=== PATIENT | female | born 1955 | race Caucasian/White ===

== ENCOUNTER 2020-03-18 16:50 | Outpatient (CLI) | payer MEDICARE, SELFPAY ==
--- NOTE | ~2020-03-18 | XR_ITS ---
EXAMINATION: XR chest 2V EXAM DATE: 03/18/2020 17:09 INDICATION: Cough, three-week shortness of breath. TECHNIQUE: Frontal and lateral projections of the chest obtained and reviewed. Comparison is made to prior examination from 07/02/2018. FINDINGS: The lungs are clear. There are no pleural effusions. The cardiomediastinal silhouette is within normal limits. There is no pneumothorax suspected. The bones and soft tissues are unremarkab le. There is no significant interval change. IMPRESSION: No acute cardiopulmonary findings. Reviewed, dictated and finalized at location A. [facility]
== END 2020-03-18 16:51 | disposition home or self-care (01) ==
PROVIDERS: PCP Family Medicine; Visit Provider Family Medicine
DX: R05 Cough (principal); R06.02 Shortness of breath
CPT/HCPCS: 71046

== ENCOUNTER 2020-07-12 08:03 | Inpatient (IN) | payer MEDICARE, SELFPAY ==
[2020-07-12] VITALS (24 sets, daily range): BP systolic 92–123; BP diastolic 42–60; PULSE 82–101; RESP 14–27; TEMP 35.9–36.7; O2SAT 97–100; BMI 34.7
[2020-07-12 08:53] LABS: Glucose Point of Care 199 (65-105)
[2020-07-12 09:09] LABS: Basophils Absolute Auto 0.1 K/mm3 (0.0-0.1); Basophils Percent Auto 0.6 % (0.2-1.2); Eosinophils Absolute Auto 0.5 K/mm3 (0-0.3); Eosinophils Percent Auto 4.3 % (0-4.4); Hematocrit 24.1 % (37.0-47.0); Hemoglobin 7.1 g/dL (12.0-15.0); Immature Granulocyte Absolute 0.05 K/mm3 (0.00-0.031); Immature Granulocyte Percent A 0.4 % (0-0.5); Lymphocytes Percent Auto 24.8 % (18.3-44.2); Mean Corpuscular HGB Conc 29.5 g/dl (32-36); Mean Corpuscular Hemoglobin 27.4 pg (26-34); Mean Corpuscular Volume 93.1 fl (80-100); Monocytes Absolute Auto 0.7 K/mm3 (0.1-0.6); Monocytes Percent Auto 6.2 % (2.6-8.5); Neutrophils Absolute Auto 7.2 K/mm3 (1.3-6.7); Neutrophils Percent Auto 63.7 % (45.5-73.1); Platelet Count Result 247 k/mm3 (150-375); Red Blood Count 2.59 M/mm3 (4.2-5.4); Red Cell Distribution Width 15.7 % (11.5-14.5); White Blood Count 11.3 K/mm3 (4.5-10.0)
[2020-07-12 09:19] LABS: Platelet Estimate Adequate (Adequate)
--- NOTE | 2020-07-12 09:19 | ED.WEAKNESS ---
HPI - Weakness General Chief complaint: Weakness Stated complaint: weakness Time Seen by Provider: 07/12/20 08:34 Source: patient Mode of arrival: ambulatory Limitations: clinical condition History of Present Illness HPI Narrative: 64-year-old female History of hypertension and diabetes Presents complaining of generalized weakness for a week Does not have any other more explicit or focused complaints than that just that she was continuing to feel worse today She either saw or discussed with Dr. Henderson previously and says he thought she might have anemia and an ulcer She does not have abdominal pain and has not had melena but is chronically maintained on omeprazole Does not report any orthostatic dizziness Related Data Allergies Allergy/AdvReac Type Severity Reaction Status Date / Time morphine Allergy Unknown unknown Verified 07/12/20 08:11 Review of Systems Review of Systems: All systems reviewed & are unremarkable except as noted in HPI and below Constitutional: Constitutional: Reports no additional constitutional complaints, Denies chills, Reports fatigue, Denies fever(s), Denies headache(s) and Reports weakness Eyes: Eyes: Reports no additional eye complaints and Denies change in vision ENT: Denies headache(s) and Denies sore throat Cardiovascular: Cardiovascular: Denies chest pain and Denies dyspnea Respiratory: Respiratory: Denies cough and Denies dyspnea Gastrointestinal: Gastrointestinal: Denies abdominal pain, Denies diarrhea and Denies vomiting Genitourinary: Genitourinary: Denies urinary frequency, Denies nocturia and Reports dysuria Musculoskeletal: Musculoskeletal: Denies deformity, Denies arthralgias, Denies joint swelling and Denies numbness Integumentary/Breasts: Skin/Breast: Denies rash and Denies wounds Neurologic: Denies headache(s), Denies focal weakness, Denies numbness and Reports weakness Psychiatric: Psychiatric: Reports no additional psychiatric complaints Endocrine: Endocrine: Reports no additional endocrine complaints Hematologic/Lymphatic: Hematologic/Lymphatic: Reports no additional hematologic/lymphatic complaints Allergic/Immunologic: Allergic/Immunologic: Reports no additional allergic/immunologic complaints [facility] Past Medical History Medical History Obesity (BMI 30-39.9) Family History Family History Father Diabetes mellitus Family history of cardiovascular disease Hypertension Family history of elevated blood lipids Mother Family history of hypercholesterolemia Hypertension Family history of development disorder Family history of seizure disorder Other Family history of Alzheimer's disease Family history of malignant neoplasm of brain Social History Social History Alcohol intake: never Gender identity (if verbalized by the patient): Female Exam Const: General: cooperative, no acute distress and alert Orientation/consciousness: patient oriented x3 (alert) HENMT: Head: normal to inspection, normocephalic and atraumatic Ears: external ears normal General nose exam: no epistaxis Eyes: Conjunctivae: conjunctivae normal EOM: EOMs intact bilaterally Neck: Neck: normal visual inspection, supple and no JVD Resp: Effort & Inspection: normal respiratory effort and not labored Auscultation: clear to auscultation bilaterally and other (BS =) Cardio: Rate: regular rate Rhythm: regular rhythm Heart sounds: Murmur heart sound present (3/6 systolic) GI: GI Palp: Yes Soft to palpation, No Tenderness to palpation present (GI), No Guarding due to palpation present (GI) and No Rebound tenderness present Rectal Exam: heme positive stool : General: Yes no CVA tenderness Skin: General skin exam: normal color and no rashes or lesions noted Neuro: General: patient oriented x3 (alert)
[2020-07-12 09:20] LABS: Anisocytosis 1+ (NORMAL); Hypochromasia 1+ (NORMAL)
[2020-07-12 09:24] LABS: Alanine Aminotransferase 22 U/L (4-35); Alkaline Phosphatase 71 U/L (38-126); Anion Gap 11 mmol/L (8-16); Aspartate Amino Transferase 24 U/L (14-36); Bilirubin,Total 1.1 mg/dL (0.2-1.3); Blood Urea Nitrogen 32 mg/dL (7-17); Calcium 8.9 mg/dL (8.4-10.2); Carbon Dioxide 21 mmol/L (22-30); Chloride 105 mmol/L (98-107); Estimated CRCL calculation 35 ml/min; Estimated Glomerular Filt Rate 38; Glucose 187 mg/dL (65-105); Potassium 4.1 mmol/L (3.4-5.0); Sodium 137 mmol/L (137-145)
[2020-07-12 09:42] LABS: Prothrombin Time 13.9 Seconds (11.1-14.7)
[2020-07-12 09:43] LABS: Partial Thromboplastin Time 27.9 SECONDS (22.3-36.8)
[2020-07-12] MEDS: LACTATED RINGERS 1,000 ML 999 ML IV CONT (09:49)
[2020-07-12 11:11] LABS: Free T4 Free Thyroxine 0.93 ng/mL (0.78-2.19)
[2020-07-12] MEDS: PANTOPRAZOLE SODIUM IV 40 MG VIAL IV PUSH ×2 (11:16→16:54)
--- NOTE | 2020-07-12 11:36 | PC.NURSE ---
Call to housekeeper child care for bed assignment.
--- NOTE | 2020-07-12 12:15 | PM.IMHP ---
H&P: HPI History of Present Illness Date/Time: 07/12/20 12:15 Chief Complaint: Black stool and fatigue Narrative: 64-year-old female was in her usual state of health until about 1 week ago. She began to feel tired lightheaded and short of breath. She experienced heart palpitations with walking across the room. On 07/10 in the evening she had 1 episode of nausea and vomiting without hematemesis or coffee-grounds. She saw her primary physician on 07/10 and omeprazole and sucralfate were begun. She took 1 dose the following day. On 07/11 cc her stools or black. They were black again today. She was lightheaded and dizzy with standing. No syncope or presyncope. Because of her continued symptoms, black stools, and extreme exhaustion she presented to the emergency department. Because of right shoulder pain and a frozen shoulder she was self medicating with Aleve 220 mg at bedtime for the last few weeks. Otherwise she does not take aspirin or NSAIDs chronically. She denied prior history of peptic ulcer disease or gastrointestinal bleeding. Review of Systems Review of Systems: All systems reviewed & are unremarkable except as noted in HPI and below PMFSH Past Medical History Medical History (Updated 07/12/20 @ 12:27 by Uri Merida MD) Benign neoplasm of unspecified adrenal gland Diabetes mellitus type 2, uncontrolled Essential (primary) hypertension Fatty (change of) liver, not elsewhere classified Mild intermittent asthma, uncomplicated Mixed hyperlipidemia Obesity (BMI 30-39.9) Type 2 diabetes mellitus with diabetic nephropathy Surgical History Surgical History (Updated 07/12/20 @ 12:33 by Uri Merida MD) History of subtotal thyroidectomy benign nodules Hx of cholecystectomy Hx of hysterectomy Family History Family History Father Diabetes mellitus Family history of cardiovascular disease Hypertension Family history of elevated blood lipids Mother Family history of hypercholesterolemia Hypertension Family history of development disorder Family history of seizure disorder Other Family history of Alzheimer's disease Family history of malignant neoplasm of brain Social History Social History (Updated 07/12/20 @ 12:34 by Uri Merida MD) Social History: 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 Nonsmoker. Nondrinker. No recreational drug use. No medical cannabis use. Smoking status: Never smoker Alcohol intake: never Substance use: never Gender identity (if verbalized by the patient): Female Meds Home Medications and Allergies Home Medications Medication Instructions Recorded Confirmed Type insulin degludec 100 unit/mL (3 10 unit SUB-Q DAILY #15 ml 06/21/19 07/10/20 Rx mL) subcutaneous pen pen needle, diabetic 32 gauge x #100 each 06/21/19 07/10/20 Rx 1/5 lancets 33 gauge #100 ea 03/31/20 07/10/20 Rx blood-glucose meter #1 ea 04/01/20 07/10/20 Rx blood sugar diagnostic See Rx Instructions .ROUTE 04/24/20 07/10/20 Rx .COMPLEX #100 ea lovastatin 10 mg tablet 10 mg PO DAILY #90 tablet 05/04/20 07/10/20 Rx sitagliptin 50 mg-metformin 1,000 1 tablet PO BID #180 tablet 05/04/20 07/10/20 Rx mg tablet lisinopril 10 mg tablet See Rx Instructions .ROUTE 06/11/20 07/10/20 Rx .COMPLEX #90 tablet glimepiride 2 mg tablet 2 mg PO QAM #180 tablet 06/25/20 07/10/20 Rx semaglutide 1 mg/dose (2 mg/1.5 1 mg SUBCUT WEEKLY #3 ml 07/06/20 07/10/20 Rx mL) subcutaneous pen injector ferrous fumarate-iron 1 cap PO BID #180 cap 07/10/20 07/10/20 Rx polysaccharide cplx 162 mg-115.2 mg (106 mg) cap omeprazole 40 mg capsule,delayed 40 mg PO DAILY #90 cap 07/10/20 07/10/20 Rx release sucralfate 1 gram tablet 1 g PO Q4H PRN #90 tablet 07/10/20 07/10/20 Rx Allergies Allergy/AdvReac Type Severity Reaction Status Date / Time morphine Allergy Unknown unknown Verified 07/12/20 08:11 Vital Signs Vital Sign
--- NOTE | 2020-07-12 12:43 | PC.NURSE ---
Attempt to call report, floor unable to take at present. Will call back.
--- NOTE | 2020-07-12 13:10 | ADMGEN ---
This patient, Mary Uribe, was admitted to Medical Room 246-01. Patient/family oriented to hospital policies and general routines including ID bracelet, bed and alarms, visiting hours, pain management, procedures, bathroom and other care routines, personal items, smoking policy, room service/diet, and visiting hours. Information on how to activate the Rapid Response Team has been discussed. Patient/Family are encouraged to report perceived risks to care and to ask questions if they do not understand what they are told or what they should do.
[2020-07-12] MEDS: SODIUM CHLORIDE 0.9% IV 250 ML 30 ML IV CONT (13:36)
--- NOTE | 2020-07-12 13:58 | PC.NURSE ---
patient could not tolerate standing long enough to get accurate blood pressure.
[2020-07-12 14:22] LABS: Glucose Point of Care 159 (65-105)
[2020-07-12 17:06] LABS: Glucose Point of Care 99 (65-105)
[2020-07-12] MEDS: LACTATED RINGERS 1,000 ML 125 ML IV CONT (20:41)
[2020-07-12 23:19] LABS: Hematocrit 27.8 % (37.0-47.0); Hemoglobin 8.7 g/dL (12.0-15.0)
[2020-07-12 23:56] LABS: Glucose Point of Care 88 (65-105)
[2020-07-13] VITALS (10 sets, daily range): BP systolic 115–147; BP diastolic 48–70; PULSE 79–95; RESP 14–22; TEMP 35.9–36.7; O2SAT 97–100
[2020-07-13] MEDS: ACETAMINOPHEN 325 MG TABLET 650 MG PO (04:26)
[2020-07-13] MEDS: LACTATED RINGERS 1,000 ML 125 ML IV CONT ×2 (04:29→16:37)
[2020-07-13 05:45] LABS: Hematocrit 22.9 % (37.0-47.0); Hemoglobin 7.2 g/dL (12.0-15.0); Mean Corpuscular HGB Conc 31.4 g/dl (32-36); Mean Corpuscular Hemoglobin 27.7 pg (26-34); Mean Corpuscular Volume 88.1 fl (80-100); Platelet Count Result 160 k/mm3 (150-375); Red Cell Distribution Width 15.8 % (11.5-14.5); White Blood Count 8.1 K/mm3 (4.5-10.0)
[2020-07-13 05:56] LABS: Anion Gap 3 mmol/L (8-16); Blood Urea Nitrogen 25 mg/dL (7-17); Calcium 8.3 mg/dL (8.4-10.2); Carbon Dioxide 26 mmol/L (22-30); Chloride 107 mmol/L (98-107); Estimated CRCL calculation 35 ml/min; Estimated Glomerular Filt Rate 38; Glucose 102 mg/dL (65-105); Potassium 3.9 mmol/L (3.4-5.0); Sodium 136 mmol/L (137-145)
[2020-07-13 06:09] LABS: Hemoglobin A1C 6.3 % (<5.7)
[2020-07-13 08:19] LABS: Glucose Point of Care 101 (65-105)
[2020-07-13] MEDS: PANTOPRAZOLE SODIUM IV 40 MG VIAL IV PUSH ×2 (08:29→16:30)
--- NOTE | 2020-07-13 11:08 | WPDGICN ---
Assessment and Plan Assessment and plan (1) Melena: Code(s): K92.1 - Melena Status: Acute Assessment and Plan: lately has been using nsaid's egd today to assess if ulcers, esophagitis, etc more recommendation after egd (2) Acute upper GI bleed: Code(s): K92.2 - Gastrointestinal hemorrhage, unspecified Status: Acute Assessment and Plan: egd sancho iv protonix discontinue nsaid's (3) Nausea and vomiting in adult: Code(s): R11.2 - Nausea with vomiting, unspecified Status: Acute Assessment and Plan: on medical treatment (4) Type 2 diabetes mellitus with diabetic nephropathy: Qualifiers: Diabetes mellitus equipment operator intermodal yard insulin use: without equipment operator intermodal yard use Qualified Code(s): E11.21 - Type 2 diabetes mellitus with diabetic nephropathy Code(s): E11.21 - Type 2 diabetes mellitus with diabetic nephropathy Status: Acute Assessment and Plan: on meds (5) Essential (primary) hypertension: Code(s): I10 - Essential (primary) hypertension Status: Acute (6) Anemia due to acute blood loss: Code(s): D62 - Acute posthemorrhagic anemia Status: Acute Assessment and Plan: monitor hb and transfuse if less than 7 GI Consult Note Consult date/time: 07/13/20 11:08 Reason for consult: melena HPI: Mary Uribe is a 64 year old female with history of DM, HTN and right shoulder pain for which she has been taking aleve daily for last few weeks. She started feeling lightheaded and short of breath, few days ago had nausea and vomiting x1 without hematemesis, PCP prescribed omeprazole and sucralfate, next day then she noted dark tarry stools (denies previous GIB and believes that had EGD but years ago). Hb 7, BUN 32, creatinine. 1.4. She never had colonoscopy but negative cologuard last year. Review of Systems Constitutional: Constitutional: Denies headache(s), Reports lethargy and Reports weakness Eyes: Eyes: Denies blurry vision ENT: Reports Normal hearing present, Denies headache(s) and Denies neck pain Cardiovascular: Cardiovascular: Denies chest pain and Reports rapid heart rate Respiratory: Respiratory: Reports dyspnea on exertion Gastrointestinal: Gastrointestinal: Reports no additional gastrointestinal complaints Genitourinary: Genitourinary: Denies dysuria Musculoskeletal: Musculoskeletal: Denies neck pain Integumentary/Breasts: Skin/Breast: Denies dry skin Neurologic: Reports Normal hearing present, Denies headache(s) and Denies weakness Psychiatric: Psychiatric: Denies anxiety Endocrine: Endocrine: Denies change in body appearance Hematologic/Lymphatic: Hematologic/Lymphatic: Denies easy bleeding Allergic/Immunologic: Allergic/Immunologic: Denies urticaria PMFSH Past Medical History Medical History (Updated 07/13/20 @ 12:11 by Rafael Arias MD) Benign neoplasm of unspecified adrenal gland Diabetes mellitus type 2, uncontrolled Essential (primary) hypertension Fatty (change of) liver, not elsewhere classified Melena Mild intermittent asthma, uncomplicated Mixed hyperlipidemia Nausea and vomiting in adult Obesity (BMI 30-39.9) Type 2 diabetes mellitus with diabetic nephropathy Surgical History Surgical History (Updated 07/12/20 @ 12:33 by Uri Merida MD) History of subtotal thyroidectomy benign nodules Hx of cholecystectomy Hx of hysterectomy Family History Family History (Updated 07/12/20 @ 14:14 by Harmony Moreno RN) Father Family history of cardiovascular disease Family history of elevated blood lipids Diabetes mellitus Hypertension Family history of Alzheimer's disease Mother Family history of seizure disorder Family history of development disorder Family history of hypercholesterolemia Hypertension Family history of Alzheimer's disease Aortic aneurysm, thoracic Family history of malignant neoplasm of brain Social History Social History (U
[2020-07-13 11:48] LABS: Glucose Point of Care 107 (65-105)
[2020-07-13 12:07] LABS: Hematocrit 23.2 % (37.0-47.0); Hemoglobin 7.2 g/dL (12.0-15.0)
--- NOTE | 2020-07-13 12:10 | PC.NURSE ---
To GI lab per salty.
[2020-07-13 12:19] LABS: Glucose Point of Care 102 (65-105)
[2020-07-13] MEDS: LACTATED RINGERS 1,000 ML 150 ML IV CONT (12:23)
--- NOTE | 2020-07-13 12:27 | WPDANESEPPF ---
Anes - Initial Pre Proc Eval Procedure: Operation Date: 07/13/20 12:30 Proposed Procedures p Esophagogastroduodenoscopy - Arthur Gonzalez MD Date/Time: 07/13/20 12:27 Surgeon: GUILLERMO Zhang Pre Op Diagnosis: ugib Patient Data Age: 64 Gender: F Height: 5 ft 1 in Weight: 83.5 kg Last Vital Signs Temp 96.6 F L 07/13/20 12:00 Pulse 92 07/13/20 12:00 Resp 22 H 07/13/20 12:00 BP 147/66 H 07/13/20 12:00 Pulse Ox 100 07/13/20 12:00 Allergies Allergy/AdvReac Type Severity Reaction Status Date / Time morphine Allergy Unknown Flushing Verified 07/12/20 13:46 Home Medications Medication Instructions Recorded Confirmed Type insulin degludec 100 unit/mL (3 10 unit SUB-Q DAILY #15 ml 06/21/19 07/12/20 Rx mL) subcutaneous pen pen needle, diabetic 32 gauge x #100 each 06/21/19 07/10/20 Rx 1/5 lancets 33 gauge #100 ea 03/31/20 07/10/20 Rx blood-glucose meter #1 ea 04/01/20 07/10/20 Rx blood sugar diagnostic See Rx Instructions .ROUTE 04/24/20 07/10/20 Rx .COMPLEX #100 ea lovastatin 10 mg tablet 10 mg PO DAILY #90 tablet 05/04/20 07/12/20 Rx sitagliptin 50 mg-metformin 1,000 1 tablet PO BID #180 tablet 05/04/20 07/12/20 Rx mg tablet glimepiride 2 mg tablet 2 mg PO QAM #180 tablet 06/25/20 07/12/20 Rx semaglutide 1 mg/dose (2 mg/1.5 1 mg SUBCUT WEEKLY #3 ml 07/06/20 07/12/20 Rx mL) subcutaneous pen injector ferrous fumarate-iron 1 cap PO BID #180 cap 07/10/20 07/12/20 Rx polysaccharide cplx 162 mg-115.2 mg (106 mg) cap omeprazole 40 mg capsule,delayed 40 mg PO DAILY #90 cap 07/10/20 07/12/20 Rx release sucralfate 1 gram tablet 1 g PO Q4H PRN #90 tablet 07/10/20 07/12/20 Rx lisinopril 10 mg PO DAILY 07/12/20 07/12/20 History meclizine 25 - 50 mg PO DAILY PRN 07/12/20 07/12/20 History Laboratory Tests 07/12/20 07/12/20 07/12/20 09:01 13:44 17:00 WBC RBC Hgb Hct MCV MCH MCHC RDW Plt Count MPV Sodium Potassium Chloride Carbon Dioxide Anion Gap BUN Creatinine Estim Creat Clear Calc Estimated GFR Glucose POC Capillary Glucose 159 mg/dl H mg/dl 99 mg/dl mg/dl (65-105) (65-105) Hemoglobin A1c Calcium Blood Type O Positive Antibody Screen Negative Crossmatch See Detail 07/12/20 07/12/20 07/13/20 23:10 23:43 05:20 WBC RBC Hgb 8.7 g/dL L g/dL (12.0-15.0) Hct 27.8 % L % (37.0-47.0) MCV MCH MCHC RDW Plt Count MPV Sodium Potassium Chloride Carbon Dioxide Anion Gap BUN Creatinine Estim Creat Clear Calc Estimated GFR Glucose POC Capillary Glucose 88 mg/dl mg/dl (65-105) Hemoglobin A1c 6.3 % H % (<5.7) Calcium Blood Type Antibody Screen Crossmatch 07/13/20 07/13/20 07/13/20 05:20 05:20 05:49 WBC 8.1 K/mm3 K/mm3 (4.5-10.0) RBC 2.60 M/mm3 L M/mm3 (4.2-5.4) Hgb 7.2 g/dL L g/dL (12.0-15.0) Hct 22.9 % L % (37.0-47.0) MCV 88.1 fl D fl (80-100) MCH 27.7 pg pg (26-34) MCHC 31.4 g/dl L g/dl (32-36) RDW 15.8 % H % (11.5-14.5) Plt Count 160 k/mm3 k/mm3 (150-375) MPV 11.0 fl H fl (7.4-10.4) Sodium 136 mmol/L L mmol/L (137-145) Potassium 3.9 mmol/L mmol/L (3.4-5.0) Chloride 107 mmol/L mmol/L (98-107) Carbon Dioxide 26 mmol/L mmol/L (22-30) Anion Gap 3 mmol/L L mmol/L
--- NOTE | 2020-07-13 12:34 | PM.IMPN ---
Progress Note: A&P Assessment and Plan (1) Anemia due to acute blood loss: Code(s): D62 - Acute posthemorrhagic anemia Status: Acute Assessment and Plan: Suspect may be related to gastritis or peptic ulcer disease; suspect secondary to naproxen use (taking for arthritis pain). Monitor hemoglobin hematocrit and transfuse to maintain hemoglobin above 7. Received 2 units packed RBC 07/12; Hgb 7.2 this AM and on 7.2 recheck this afternoon. Monitor H&H. (2) GI bleed due to NSAIDs: Code(s): K92.2 - Gastrointestinal hemorrhage, unspecified; T39.395A - Adverse effect of other nonsteroidal anti-inflammatory drugs [NSAID], initial encounter Status: Acute Assessment and Plan: Appreciate GI consultation. Plan is for EGD this afternoon with Dr Chavarria. Continue pantoprazole BID. Continue GI recommendations. (3) Diabetes mellitus type 2, uncontrolled: Qualifiers: Glycemic state: with hyperglycemia Qualified Code(s): E11.65 - Type 2 diabetes mellitus with hyperglycemia Code(s): E11.65 - Type 2 diabetes mellitus with hyperglycemia Status: Acute Assessment and Plan: Q.6 hours sliding-scale insulin while NPO. (4) Type 2 diabetes mellitus with diabetic nephropathy: Qualifiers: Diabetes mellitus lobsterman insulin use: without lobsterman use Qualified Code(s): E11.21 - Type 2 diabetes mellitus with diabetic nephropathy Code(s): E11.21 - Type 2 diabetes mellitus with diabetic nephropathy Status: Acute Assessment and Plan: Avoid nephrotoxic drugs. Continue IV hydration for now and monitor renal function. (5) Essential (primary) hypertension: Code(s): I10 - Essential (primary) hypertension Status: Acute Assessment and Plan: Lisinopril is held, BP reasonable at present. Monitor BP and adjust treatment as needed. Can add hydralazine PRN if pressure rises. (6) Mild intermittent asthma, uncomplicated: Code(s): J45.20 - Mild intermittent asthma, uncomplicated Status: Acute Assessment and Plan: Stable, no evidence of respiratory distress. Monitor. Subjective Date/time seen: 07/13/20 1145 Interval history: Ms. Uribe is a 64y F admitted for anemia and melena. She is feeling okay today, got lightheaded when sitting up in chair earlier but feels better at present. Notes she gets intermittent abdominal pain but none today. No nausea or vomiting. She reports dark tarry stools began around 3 days ago. She has had a dark BM this morning. Denies chest pain. She was feeling short of breath over the weekend and fatigued, denies SOB at present. , Evan, is at the bedside. Review of Systems Review of Systems: All systems reviewed & are unremarkable except as noted in HPI and below Exam Narrative: Exam Narrative: General: Female resting comfortably supine in bed in no acute distress. HEENT: Normocephalic, EOMI, oral mucosa moist. Cardiovascular: Rate and rhythm are regular. Respiratory: Lungs clear to auscultation bilaterally. Respirations even and non-labored. Tolerating room air. Abdomen: Soft, non-tender, non-distended, bowel sounds present. Extremities: Peripheral pulses intact. No edema or pain to palpation. Neuro: Awake and alert. No focal neurological deficits. Speech is clear. Objective Data Vital Signs Vital Signs: Last Vital Signs Temp 96.6 F L 07/13/20 12:00 Pulse 92 07/13/20 12:00 Resp 22 H 07/13/20 12:00 BP 147/66 H 07/13/20 12:00 Pulse Ox 100 07/13/20 12:00 Intake/Output Intake/Output: Intake & Output 07/10/20 07/11/20 07/12/20 07/13/20 23:59 23:59 23:59 23:59 Intake Total 1697 1000 Output Total 600 [place]
[2020-07-13] MEDS: EPINEPHrine INJ 1 MG/10 ML SYRINGE 0.35 MG XX (13:30)
--- NOTE | 2020-07-13 14:07 | PC.NURSE ---
Return from GI lab per salty.
[2020-07-13 17:47] LABS: Glucose Point of Care 108 (65-105)
[2020-07-13 21:28] LABS: Glucose Point of Care 132 (65-105)
[2020-07-14 00:36] VITALS: BP 108/59; PULSE 86; RESP 16; TEMP 36.6; O2SAT 100
[2020-07-14] MEDS: LACTATED RINGERS 1,000 ML 125 ML IV CONT (01:11)
[2020-07-14 05:07] VITALS: BP 109/53; PULSE 80; RESP 16; TEMP 37.1; O2SAT 98
[2020-07-14 05:40] LABS: Hematocrit 22.7 % (37.0-47.0); Hemoglobin 7.1 g/dL (12.0-15.0); Mean Corpuscular HGB Conc 31.3 g/dl (32-36); Mean Corpuscular Hemoglobin 28.1 pg (26-34); Mean Corpuscular Volume 89.7 fl (80-100); Mean Platelet Volume 10.9 fl (7.4-10.4); Platelet Count Result 167 k/mm3 (150-375); Red Blood Count 2.53 M/mm3 (4.2-5.4); Red Cell Distribution Width 15.7 % (11.5-14.5); White Blood Count 6.4 K/mm3 (4.5-10.0)
[2020-07-14 06:03] LABS: Anion Gap 4 mmol/L (8-16); Blood Urea Nitrogen 15 mg/dL (7-17); Calcium 8.3 mg/dL (8.4-10.2); Carbon Dioxide 26 mmol/L (22-30); Chloride 108 mmol/L (98-107); Estimated CRCL calculation 40 ml/min; Estimated Glomerular Filt Rate 45; Glucose 111 mg/dL (65-105); Magnesium 1.7 mg/dL (1.6-2.3); Potassium 3.8 mmol/L (3.4-5.0); Sodium 138 mmol/L (137-145)
--- NOTE | 2020-07-14 07:00 | WPDGIPROGNO ---
Progress Note: A&P Assessment and Plan (1) Melena: Code(s): K92.1 - Melena Status: Acute Assessment and Plan: it appears that bleeding has stopped. No bloody or black stools yet today. Will recheck counts at 2:00 p.m. (2) Duodenal ulcer: Code(s): K26.9 - Duodenal ulcer, unspecified as acute or chronic, without hemorrhage or perforation Status: Acute Assessment and Plan: H pylori is negative. From my perspective she could be discharged on PPI, b.i.d. for the 1st week then once daily for 6 weeks. We discussed the need to avoid NSAIDs or always take them after eating Time Spent With Patient Time with patient: 15 - 25 minutes Subjective Date/time seen: 07/14/20 07:00 She has had nose bloody stools during the night. She did tolerate a full liquid diet last night. Denies nausea or vomiting. She had some epigastric pain for part of the afternoon after procedure but has none now. Hemoglobin remains stable at 7.2. I will recheck it early this afternoon. If stable she should be able to be discharged later today on PPI. Review of Systems Review of Systems: All systems reviewed & are unremarkable except as noted in HPI and below Exam GI: Inspection: normal to inspection GI Palp: Yes Soft to palpation, No Tenderness to palpation present (GI) and Yes No hepatosplenomegaly present Auscultation: normal bowel sounds Objective Data Vital Signs Vital Signs: Vital Signs - 24 hr 07/13/20 08:00 07/13/20 12:00 07/13/20 13:30 Temperature 36.4 C L 35.9 C L Pulse Rate 79 92 95 Respiratory Rate 14 22 H 22 H Blood Pressure 122/56 L 147/66 H 146/68 H Pulse Oximetry 98 100 100 07/13/20 13:40 07/13/20 13:50 07/13/20 14:00 Temperature 36.1 C L Pulse Rate 87 90 85 Respiratory Rate 22 H 22 H 14 Blood Pressure 144/67 H 143/70 H 144/58 H Pulse Oximetry 100 98 97 07/13/20 18:00 07/13/20 20:36 07/14/20 00:36 Temperature 36.5 C 36.7 C 36.6 C Pulse Rate 88 86 86 Respiratory Rate 16 16 16 Blood Pressure 119/63 118/48 L 108/59 L Pulse Oximetry 99 98 100 07/14/20 05:07 Temperature 37.1 C Pulse Rate 80 Respiratory Rate 16 Blood Pressure 109/53 L Pulse Oximetry 98 Intake/Output Intake/Output: Intake & Output 07/11/20 07/12/20 07/13/20 07/14/20 23:59 23:59 23:59 23:59 Intake Total 1697 2410 1200 Output Total 1250 600 Balance 1697 1160 600 Meds/Results Medications: Active Medications Generic Name Dose Route Start Last Admin Trade Name Freq PRN Reason Stop Dose Admin Acetaminophen 650 mg 07/12/20 10:58 07/13/20 04:26 Acetaminophen 325 Mg Tablet PO 650 mg Q4H PRN Administration Mild Pain (1-3) or Fever Dextrose 12.5 gm 07/12/20 12:24 Dextrose 50% 25 Gm/50 Ml Syringe IV PUSH PRN PRN Hypoglycemia Protocol Glimepiride 2 mg 07/14/20 09:00 Glimepiride 2 Mg Tablet PO QAM MELODY Glucagon 1 mg 07/12/20 12:24 Glucagon For Inj 1 Mg Vial IM PRN PRN Hypoglycemia Protocol Glucose 15 gm 07/12/20 12:24 Glucose Oral Gel 15 Gm Of Glucse In 37.5 Gm Tube PO PRN PRN Hypoglycemia Protocol Lactated Ringer's 1,000 mls @ 125 mls/hr 07/12/20 11:00 07/14/20 01:11 Lr - Lactated Ringers Iv IV CONT 125 mls/hr .Q8H MELODY Administration Dextrose 1,000 mls @ 100 mls/hr 07/12/20 12:24 Dextrose 5% 1,000 Ml IVPB PRN PRN Hypoglycemia Protocol Insulin Aspart 2 - 5 units 07/13/20 17:00 07/13/20 17:45 Insulin Aspart (*Bkc) 100 Units/Ml SUB-Q Not Given TIDWM [facility] Protocol Lisinopril 10 mg 07/14/20 09:00 Lisinopril 10 Mg Tablet PO DAILY [facility] Lovastatin 10 mg 07/14/20 09:00 Lovastatin 10 Mg Tablet PO DAILY [facility] Ondansetron HCl 4 mg 07/12/20 10:58 Ondansetron Inj 4 Mg/2 Ml Vial IV PUSH Q4H PRN Nausea Pantoprazole Sodium 40 mg 07/12/20 17:00 07/13/20 16:30 Pantoprazole Sodium Iv 40 Mg Vial IV PUSH 40 mg BID MELODY Adminis
[2020-07-14 07:34] LABS: Glucose Point of Care 114 (65-105)
--- NOTE | 2020-07-14 08:36 | WPDANESPN ---
Anes - Prog Note Post-Op Date/Time: 07/14/20 08:36 Cardiovascular status: normal Respiratory status: normal Airway patency: baseline Mental status: baseline Post-Op hydration status: normal Vital Signs: Last Vital Signs Temp 37.1 C 07/14/20 05:07 Pulse 80 07/14/20 05:07 Resp 16 07/14/20 05:07 BP 109/53 L 07/14/20 05:07 Pulse Ox 98 07/14/20 05:07 Pain Score (VAS): 04/12 I/O: Intake & Output 07/13/20 07/14/20 07/14/20 23:59 07:59 15:59 Intake Total 1310 1200 Output Total 650 600 Balance 660 600 Laboratory Tests 07/14/20 05:23 07/14/20 05:23 07/13/20 07/13/20 07/13/20 11:45 11:50 12:16 WBC RBC Hgb 7.2 L Hct 23.2 L MCV MCH MCHC RDW Plt Count MPV Sodium Potassium Chloride Carbon Dioxide Anion Gap BUN Creatinine Estim Creat Clear Calc Estimated GFR Glucose POC Capillary Glucose 107 102 Calcium Magnesium 07/13/20 07/13/20 07/14/20 17:33 20:38 05:23 WBC 6.4 RBC 2.53 L Hgb 7.1 L Hct 22.7 L MCV 89.7 MCH 28.1 MCHC 31.3 L RDW 15.7 H Plt Count 167 MPV 10.9 H Sodium Potassium Chloride Carbon Dioxide Anion Gap BUN Creatinine Estim Creat Clear Calc Estimated GFR Glucose POC Capillary Glucose 108 132 H Calcium Magnesium 07/14/20 07/14/20 05:23 07:30 WBC RBC Hgb Hct MCV MCH MCHC RDW Plt Count MPV Sodium 138 Potassium 3.8 Chloride 108 H Carbon Dioxide 26 Anion Gap 4 L BUN 15 D Creatinine 1.20 H Estim Creat Clear Calc 40 Estimated GFR 45 L Glucose 111 H POC Capillary Glucose 114 H Calcium 8.3 L Magnesium 1.7 Post-procedural complaints: none Patient Feedback: Patient satisfied with anesthetic care.
[2020-07-14] MEDS: lisinopriL 10 MG TABLET PO (08:40)
[2020-07-14] MEDS: GLIMEPIRIDE 2 MG TABLET PO (08:41)
[2020-07-14] MEDS: LOVASTATIN 10 MG TABLET PO (08:42)
[2020-07-14] MEDS: PANTOPRAZOLE SODIUM IV 40 MG VIAL IV PUSH (08:46)
[2020-07-14 09:10] VITALS: BP 136/56; PULSE 76; RESP 18; TEMP 36.2; O2SAT 98
[2020-07-14 11:28] LABS: Glucose Point of Care 235 (65-105)
[2020-07-14] MEDS: INSULIN ASPART (*BKC) 100 UNITS/ML SUB-Q (12:17)
[2020-07-14 14:37] LABS: Hematocrit 23.4 % (37.0-47.0); Hemoglobin 7.2 g/dL (12.0-15.0)
[2020-07-14 14:40] VITALS: BP 103/52; PULSE 85; RESP 14; TEMP 35.8; O2SAT 98
--- NOTE | 2020-07-14 15:19 | PC.NURSE ---
On 07/14/20, the student, [JAKI BAPTISTE], provided care and completed [facility] documentation on this patient. I have reviewed the student's documentation and agree with the findings.
--- NOTE | 2020-07-14 15:21 | PM.DS ---
DS: Admitting Diagnosis Admitting Diagnosis Admitting Diagnosis: GI bleed/anemia DS: Discharge Diagnosis Discharge Diagnosis (1) Duodenal ulcer: Code(s): K26.9 - Duodenal ulcer, unspecified as acute or chronic, without hemorrhage or perforation Status: Acute Assessment and Plan: Official ulcers were visualized in the duodenal bulb and epinephrine was administered as well as cauterization and clips -the day discharge the patient was feeling much better -hemoglobin at discharge was 7.2 and the patient had no symptoms of blood loss and denied chest pain, lightheadedness, unsteadiness, or weakness -she was instructed to continue iron that her primary care physician had ordered. I called the PCP and let them know about her discharge (2) Anemia due to acute blood loss: Code(s): D62 - Acute posthemorrhagic anemia Status: Acute Assessment and Plan: As above (3) GI bleed due to NSAIDs: Code(s): K92.2 - Gastrointestinal hemorrhage, unspecified; T39.395A - Adverse effect of other nonsteroidal anti-inflammatory drugs [NSAID], initial encounter Status: Acute Assessment and Plan: Continue pantoprazole and avoid NSAIDs if possible (4) Diabetes mellitus type 2, uncontrolled: Qualifiers: Glycemic state: with hyperglycemia Qualified Code(s): E11.65 - Type 2 diabetes mellitus with hyperglycemia Code(s): E11.65 - Type 2 diabetes mellitus with hyperglycemia Status: Acute Assessment and Plan: Last glucose 235 -continue home regimen, A1c 6.3 (5) Type 2 diabetes mellitus with diabetic nephropathy: Qualifiers: Diabetes mellitus long filler cigar roller machine insulin use: without long filler cigar roller machine use Qualified Code(s): E11.21 - Type 2 diabetes mellitus with diabetic nephropathy Code(s): E11.21 - Type 2 diabetes mellitus with diabetic nephropathy Status: Acute Assessment and Plan: Chronic and stable (6) Essential (primary) hypertension: Code(s): I10 - Essential (primary) hypertension Status: Acute Assessment and Plan: Last blood pressure 103/52 -continue home meds (7) Mild intermittent asthma, uncomplicated: Code(s): J45.20 - Mild intermittent asthma, uncomplicated Status: Acute Assessment and Plan: Chronic and stable DS: Summary Hospital Course Hospital Course: Patient is a 64-year-old female with a history of hypertension and diabetes who presented emergency room for weakness and dark stool. Vitals in the ER were temperature 35.9? C, pulse 95, respiratory rate 18, blood pressure 116/54, pulse ox 99 on room air. Initial white blood cell 10 8, hemoglobin 7.1, hematocrit 20, platelets 247. BMP showed chronic kidney disease with a creatinine 1.4. Patient was admitted to the hospitalist service and received a total of 2 units of blood. She underwent an EGD which revealed a bleeding duodenal ulcer which was cauterized company given epinephrine and clips were applied. The patient had no further bleeding or symptoms of blood loss. Although her hemoglobin was 7.2 discharge, she had absolutely no symptoms of anemia. I called Dr. Walt Henderson about the findings and the further monitoring. All-in-all, the patient was back to baseline the day of discharge. She was educated about the worrisome signs and symptoms to come back to the emergency room for and was discharged in stable condition with follow-up with Dr. Justen Henderson Status at Discharge Functional status at discharge: independent ambulation Overall status at discharge: patient is back to baseline Time Spent with Patient Time attestation: Total time spent providing and/or coordinating discharge services:38 min Time spent: Greater than 30 minutes Exam Narrative: Exam Narrative: General: Well developed well nourished patient in NAD HEENT: normocephalic Neck: supple Neuro: Alert and oriented x4 CV:RRR Resp:CTA Abd: Sof
== END 2020-07-14 15:55 | disposition home or self-care (01) | DRG 378 ==
LOC: ANHED 11:06 → ANH2MED 07-13 07:56
PROVIDERS: Internal Medicine Gastroenterology; Physician Assistant; Admitting Provider Internal Medicine; Emergency Provider Emergency Medicine; PCP Family Medicine; Visit Provider Physician Assistant
PROC: 0DJ08ZZ Inspection of Upper Intestinal Tract, Via Natural or Artificial Opening Endoscopic (ICD-10-PCS; CPT 43235; principal; 2020-07-13 12:30)
DX: K26.4 Chronic or unspecified duodenal ulcer with hemorrhage (principal); D62 Acute posthemorrhagic anemia; K92.2 Gastrointestinal hemorrhage, unspecified; T39.395A Adverse effect of other nonsteroidal anti-inflammatory drugs [NSAID], initial encounter; E11.65 Type 2 diabetes mellitus with hyperglycemia; E11.21 Type 2 diabetes mellitus with diabetic nephropathy; I10 Essential (primary) hypertension; J45.20 Mild intermittent asthma, uncomplicated; E66.9 Obesity, unspecified; Z68.34 Body mass index [BMI] 34.0-34.9, adult; K76.0 Fatty (change of) liver, not elsewhere classified; E78.2 Mixed hyperlipidemia; Z90.49 Acquired absence of other specified parts of digestive tract; Z90.710 Acquired absence of both cervix and uterus
CPT/HCPCS: 36415; 36430; 80048; 80053; 82948; 83036; 83735; 84439; 84443; 85014; 85018; 85025; 85027; 85610; 85730; 86850; 86900; 86901; 86920; 87081; 96360; 99285; A9270; C9113; J0171; J1815; J2704; J7050; J7120; P9016

== ENCOUNTER 2020-07-30 10:07 | Inpatient (IN) | payer MEDICARE, SELFPAY ==
[2020-07-30] VITALS (28 sets, daily range): BP systolic 52–145; BP diastolic 38–60; PULSE 86–101; RESP 14–28; TEMP 35.9–36.6; O2SAT 98–100; BMI 35.2
--- NOTE | ~2020-07-30 | XR_ITS ---
EXAMINATION: XR chest 1V portable 07/30/2020 11:20 INDICATION: Weakness PROCEDURE: AP portable chest COMPARISON: 03/18/2020 FINDINGS: The lungs are clear. The cardiomediastinal silhouette is within normal limits. There are no pleural effusions. There is no pneumothorax suspected. IMPRESSION: 1: NO ACUTE CARDIOPULMONARY DISEASE. Reviewed, dictated and finalized at location B.
[2020-07-30 10:26] LABS: Basophils Absolute Auto 0.1 K/mm3 (0.0-0.1); Basophils Percent Auto 0.6 % (0.2-1.2); Eosinophils Absolute Auto 0.1 K/mm3 (0-0.3); Eosinophils Percent Auto 1.4 % (0-4.4); Immature Granulocyte Absolute 0.08 K/mm3 (0.00-0.031); Immature Granulocyte Percent A 0.9 % (0-0.5); Lymphocytes Percent Auto 11.1 % (18.3-44.2); Mean Corpuscular HGB Conc 28.3 g/dl (32-36); Mean Corpuscular Hemoglobin 24.3 pg (26-34); Mean Corpuscular Volume 85.9 fl (80-100); Mean Platelet Volume 11.6 fl (7.4-10.4); Monocytes Absolute Auto 0.5 K/mm3 (0.1-0.6); Neutrophils Absolute Auto 7.2 K/mm3 (1.3-6.7); Platelet Count Result 262 k/mm3 (150-375); Red Blood Count 1.85 M/mm3 (4.2-5.4); Red Cell Distribution Width 15.7 % (11.5-14.5)
[2020-07-30 10:39] LABS: Alanine Aminotransferase 22 U/L (4-35); Albumin Level 3.9 g/dL (3.5-5.1); Alkaline Phosphatase 64 U/L (38-126); Anion Gap 11 mmol/L (8-16); Aspartate Amino Transferase 25 U/L (14-36); Bilirubin,Total 0.9 mg/dL (0.2-1.3); Blood Urea Nitrogen 29 mg/dL (7-17); Carbon Dioxide 22 mmol/L (22-30); Chloride 102 mmol/L (98-107); Estimated CRCL calculation 38 ml/min; Estimated Glomerular Filt Rate 41; Glucose 338 mg/dL (65-105); Potassium 4.5 mmol/L (3.4-5.0); Sodium 135 mmol/L (137-145)
[2020-07-30 10:40] LABS: Hematocrit 15.9 % (37.0-47.0); Hemoglobin 4.5 g/dL (12.0-15.0); INR 1.1; Prothrombin Time 14.5 Seconds (11.1-14.7)
[2020-07-30 10:41] LABS: Platelet Estimate Adequate (Adequate)
[2020-07-30 10:42] LABS: Anisocytosis 2+ (NORMAL); Hypochromasia 2+ (NORMAL); Ovalocytes 1+ (NORMAL); Partial Thromboplastin Time 27.1 SECONDS (22.3-36.8); Tear Drop Cells 1+ (NORMAL)
--- NOTE | 2020-07-30 11:02 | ECG_ITS ---
Measurements Intervals [place] Rate: 98 P: 8 WI: 159 QRS: 5 QRSD: 93 T: -14 QT: 361 QTc: 462 Interpretive Statements SINUS RHYTHM BORDERLINE ST-T WAVE ABNORMALITY- INFERIOR LEADS BASELINE ARTIFACT- I, II, III, AVR, AVL, AVF, V1-V6 BORDERLINE ECG Electronically Signed On 07-30-2020 11:37:18 CDT by Randy Greer D.O.
--- NOTE | 2020-07-30 11:06 | ED.WEAKNESS ---
HPI - Weakness General Chief complaint: Weakness Stated complaint: weak Time Seen by Provider: 07/30/20 10:51 Source: patient, RN notes reviewed and old records reviewed Mode of arrival: ambulatory Limitations: no limitations History of Present Illness HPI Narrative: This is a 64 year old female with history of PUD, upper GI hemorrhage, anemia who presents for evaluation of generalized weakness for 2 weeks. She states she feels like she is going to pass out whenever she stands. She denies chest pain, abdominal pain, sob, diarrhea. She reports her stools have been green due to her taking iron but she denies melena otherwise. She does reports she had an episode of vomiting this morning. She denies blood in her emesis . She was seen by Dr. Gonzalez in clinic over a week ago. She is taking omeprazole daily MD Complaint: generalized weakness Related Data Home Medications Medication Instructions Recorded Confirmed lisinopril 10 mg PO DAILY 07/12/20 07/30/20 meclizine 25 - 50 mg PO DAILY PRN 07/12/20 07/30/20 sucralfate 1 g PO Q4H PRN 07/30/20 07/30/20 Allergies Allergy/AdvReac Type Severity Reaction Status Date / Time morphine Allergy Unknown Flushing Verified 07/30/20 10:51 Review of Systems Review of Systems: All systems reviewed & are unremarkable except as noted in HPI and below PMFSH Past Medical History Medical History (Updated 07/30/20 @ 16:15 by Amber Gil PA-C) 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 Chronic kidney disease, stage 3 Baseline creatinine is between 1.2 and 1.40. Essential (primary) hypertension Fatty (change of) liver, not elsewhere classified History of kidney stones Mild intermittent asthma, uncomplicated Mixed hyperlipidemia Shingles (~2014) Type 2 diabetes mellitus with diabetic nephropathy Hemoglobin A1c was 6.3% on 07/12/2020. Surgical History Surgical History (Updated 07/30/20 @ 16:12 by Amber Gil PA-C) History of cholecystectomy History of incisional hernia repair History of partial hysterectomy History of subtotal thyroidectomy Benign nodules. History of tonsillectomy History of tubal ligation Family History Family History Father Family history of cardiovascular disease Family history of elevated blood lipids Diabetes mellitus Hypertension Family history of Alzheimer's disease Mother Family history of seizure disorder Family history of development disorder Family history of hypercholesterolemia Hypertension Family history of Alzheimer's disease Aortic aneurysm, thoracic Family history of malignant neoplasm of brain Social History Social History (Updated 07/30/20 @ 16:13 by Amber Gil PA-C) Social History: Surrogate decision maker: Evan Uribe, . Code status: Full code. Smoking status: Never smoker Second hand tobacco smoke exposure: Yes Alcohol intake: never Substance use: never Additional living arrangements comments: Resides in [place] with her . 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 Gender identity (if verbalized by the patient): Female Sexual Orientation (if Verbalized by the Patient): Straight or Heterosexual Spiritual care concerns: No Exam Const: General: no acute distress, alert and ill appearing Orientation/consciousness: patient oriented x3 Eyes: EOM: EOMs intact bilaterally Chest: Chest palpation & inspection: normal inspection of the chest Resp: Effort & Inspection: normal respiratory effort and no retractions Auscultation: clear to auscultation bilaterally Cardio: Rate: regular rate Rhythm: regular rhythm Heart sounds: no murmurs GI: GI Palp: Yes Soft to palpation, No Tenderness to palpation present (GI) and No Guarding due to palpation present (GI) Auscultation: normal bowel sounds Rectal Exam: heme positive stool Other: no melena Skin: Gene
[2020-07-30] MEDS: LACTATED RINGERS 1,000 ML 999 ML IV CONT (11:11)
[2020-07-30] MEDS: PANTOPRAZOLE SODIUM IV 40 MG VIAL IV PUSH ×2 (11:11→20:35)
[2020-07-30] MEDS: SODIUM CHLORIDE 0.9% IV 250 ML 30 ML IV CONT (12:59)
--- NOTE | 2020-07-30 13:32 | WPDGICN ---
Assessment and Plan Assessment and plan (1) Duodenal ulcer: Code(s): K26.9 - Duodenal ulcer, unspecified as acute or chronic, without hemorrhage or perforation Status: Acute Assessment and Plan: although her ulcer was cauterized, the fact that she has very low counts now suggests that it may have repeat blood. (2) Anemia: Code(s): D64.9 - Anemia, unspecified Status: Acute Assessment and Plan: she is receiving a blood transfusion now for hemoglobin 4.5 g. We will schedule her for EGD to be done tomorrow morning and, if she can tolerate a prep also a colonoscopy to rule out other sources of blood loss Additional Plan she will be continued on PPI. GI Consult Note Consult date/time: 07/30/20 13:32 HPI: Mary Uribe is a 64 year old female who presented to the emergency room today feeling very weak. She was found have a hemoglobin of 4.2 g. She was hospitalized 2 weeks ago with melena after having taking ibuprofen for bad shoulder. She was found have a duodenal ulcer which was cauterized. Since discharge she denies having bloody stools they are dark although she is taking iron supplements she has had no abdominal pain nausea or vomiting until this morning when she woke up not feeling well to begin with and had a protein shake and then vomited although there was no blood or coffee-ground material in her emesis. She is no longer taking NSAIDs. Her appetite had been good. Before discharge her hemoglobin was a little or 7 and now has a mention in his 4 g. She has at present time receiving a blood transfusion. She had never had a colonoscopy but did have a colon guard test a year or 2 ago which was negative Review of Systems Review of Systems: All systems reviewed & are unremarkable except as noted in HPI and below [facility] Past Medical History Medical History Benign neoplasm of unspecified adrenal gland Diabetes mellitus type 2, uncontrolled Essential (primary) hypertension Fatty (change of) liver, not elsewhere classified Melena Mild intermittent asthma, uncomplicated Mixed hyperlipidemia Nausea and vomiting in adult Obesity (BMI 30-39.9) Type 2 diabetes mellitus with diabetic nephropathy Surgical History Surgical History History of subtotal thyroidectomy benign nodules Hx of cholecystectomy Hx of hysterectomy Family History Family History Father Family history of cardiovascular disease Family history of elevated blood lipids Diabetes mellitus Hypertension Family history of Alzheimer's disease Mother Family history of seizure disorder Family history of development disorder Family history of hypercholesterolemia Hypertension Family history of Alzheimer's disease Aortic aneurysm, thoracic Family history of malignant neoplasm of brain Social History Social History Social History: 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 Nonsmoker. Nondrinker. No recreational drug use. No medical cannabis use. Alcohol intake: never Substance use: never Gender identity (if verbalized by the patient): Female Spiritual care concerns: No Meds Home Medications and Allergies Home Medications Medication Instructions Recorded Confirmed Type insulin degludec 100 unit/mL (3 10 unit SUB-Q DAILY #15 ml 06/21/19 07/23/20 Rx mL) subcutaneous pen pen needle, diabetic 32 gauge x #100 each 06/21/19 07/23/20 Rx 1/5 lancets 33 gauge #100 ea 03/31/20 07/23/20 Rx blood-glucose meter #1 ea 04/01/20 07/23/20 Rx blood sugar diagnostic See Rx Instructions .ROUTE 04/24/20 07/23/20 Rx .COMPLEX #100 ea lovastatin 10 mg tablet 10 mg PO DAILY #90 tablet 05/04/20 07/23/20 Rx sitagliptin 50 mg-metformin 1,000 1 tablet PO BID #180 tablet 05/04/20 07/23/20 Rx mg tabl
--- NOTE | 2020-07-30 14:05 | ADMGEN ---
This patient, Mary Uribe, was admitted to IMU Room 206-02. Patient/family oriented to hospital policies and general routines including ID bracelet, bed and alarms, visiting hours, pain management, procedures, bathroom and other care routines, personal items, smoking policy, room service/diet, and visiting hours. Information on how to activate the Rapid Response Team has been discussed. Patient/Family are encouraged to report perceived risks to care and to ask questions if they do not understand what they are told or what they should do.
[2020-07-30 15:46] LABS: Glucose Point of Care 179 (65-105)
--- NOTE | 2020-07-30 16:30 | PM.IMHP ---
H&P: HPI History of Present Illness Date/Time: 07/30/20 16:30 Chief Complaint: Weakness Narrative: This is a 64-year-old female with recent hospitalization for upper GI bleed related to duodenal ulcers, GERD, hypertension, chronic kidney disease, and type 2 diabetes mellitus who presented to the emergency department earlier today from home for evaluation of weakness. As mentioned she was recently admitted to the hospital within the last couple of weeks with an upper GI bleed and was found to have a superficial ulcer in the duodenal bulb on endoscopy per Dr. Gonzalez. It is my understanding that she had been taking quite a bit of ibuprofen and has discontinued such since diagnosis. She was discharged with omeprazole b.i.d. and sucralfate as needed and she seemed to be doing well on outpatient follow-up visit on 07/20. Unfortunately since that time she has had progressive weakness and more recently she reports near syncopal episodes when standing. Her stools are ?dark green? which she has blamed on her iron supplements; she denies overt melena and hematochezia. Today she had pretty significant nausea and had an episode of nonbloody emesis and she came to the emergency department where she was once again profoundly anemic with a hemoglobin and hematocrit of 4.5 and 15.9% respectively. Since admission to the floor she has had a couple of loose, foul-smelling dark stools. At this time she feels a bit better and she is currently receiving a unit of blood. She denies chest pain and shortness of breath. No epistaxis, hematemesis, hematochezia, or hematuria. Review of Systems Review of Systems: Narrative: Twelve systems were reviewed with pertinent positives and negatives as per HPI. She has never had a colonoscopy but reports a negative Cologuard last year. Weight has remained stable. No syncope but she does report lightheadedness/dizziness and near syncopal episode upon standing over the last couple of days. Except as documented, all other systems were reviewed and are negative. 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 Chronic kidney disease, stage 3 Baseline creatinine is between 1.2 and 1.40. Essential (primary) hypertension Fatty (change of) liver, not elsewhere classified History of kidney stones Mild intermittent asthma, uncomplicated Mixed hyperlipidemia Shingles (~2014) Type 2 diabetes mellitus with diabetic nephropathy Hemoglobin A1c was 6.3% on 07/12/2020. Surgical History Surgical History (Updated 07/30/20 @ 16:12 by Amber Gil PA-C) History of cholecystectomy History of incisional hernia repair History of partial hysterectomy History of subtotal thyroidectomy Benign nodules. History of tonsillectomy History of tubal ligation Family History Family History Father Family history of cardiovascular disease Family history of elevated blood lipids Diabetes mellitus Hypertension Family history of Alzheimer's disease Mother Family history of seizure disorder Family history of development disorder Family history of hypercholesterolemia Hypertension Family history of Alzheimer's disease Aortic aneurysm, thoracic Family history of malignant neoplasm of brain Social History Social History Social History: Surrogate decision maker: Evan Uribe, . Code status: Full code. Smoking status: Never smoker Second hand tobacco smoke exposure: Yes Alcohol intake: never Substance use: never Additional living arrangements comments: Resides in [place] with her . 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 Gender identity (if verbalized by the patient): Female Sexual Orientation (if Verbalized by the Patient): Straight or Heterosexual Sp
[2020-07-30] MEDS: TUBING, BLOOD PLUM PUMP TUBING 1 EACH XX ×3 (18:13→20:46)
[2020-07-30] MEDS: SODIUM CHLORIDE 0.9% IV 250 ML 30 ML (18:13)
[2020-07-30] MEDS: polyethylene glycoL 3350 238 GM BOTTLE PO (18:27)
[2020-07-30] MEDS: BISACODYL 5 MG TABLET EC 10 MG PO (20:45)
[2020-07-30] MEDS: SODIUM CHLORIDE 0.9% IV 100 ML 30 ML (20:46)
[2020-07-30] MEDS: LACTATED RINGERS 1,000 ML 125 ML IV CONT (23:04)
[2020-07-31] VITALS (14 sets, daily range): BP systolic 109–143; BP diastolic 48–70; PULSE 70–89; RESP 14–28; TEMP 36–36.9; O2SAT 96–100; BMI 36.5
[2020-07-31 00:48] LABS: Hematocrit 24.3 % (37.0-47.0); Hemoglobin 7.7 g/dL (12.0-15.0)
[2020-07-31 00:48] LABS: Glucose Point of Care 217 (65-105)
[2020-07-31] MEDS: BISACODYL 5 MG TABLET EC 10 MG PO (03:58)
[2020-07-31 05:25] LABS: Basophils Percent Auto 0.5 % (0.2-1.2); Eosinophils Absolute Auto 0.2 K/mm3 (0-0.3); Eosinophils Percent Auto 2.3 % (0-4.4); Hematocrit 23.1 % (37.0-47.0); Hemoglobin 7.3 g/dL (12.0-15.0); Immature Granulocyte Absolute 0.02 K/mm3 (0.00-0.031); Immature Granulocyte Percent A 0.3 % (0-0.5); Lymphocytes Absolute Auto 1.61 K/mm3 (0.9-3.2); Lymphocytes Percent Auto 20.2 % (18.3-44.2); Mean Corpuscular HGB Conc 31.6 g/dl (32-36); Mean Corpuscular Hemoglobin 26.6 pg (26-34); Mean Corpuscular Volume 84.3 fl (80-100); Mean Platelet Volume 11.4 fl (7.4-10.4); Monocytes Absolute Auto 0.6 K/mm3 (0.1-0.6); Monocytes Percent Auto 7.3 % (2.6-8.5); Neutrophils Absolute Auto 5.6 K/mm3 (1.3-6.7); Neutrophils Percent Auto 69.4 % (45.5-73.1); Platelet Count Result 178 k/mm3 (150-375); Red Blood Count 2.74 M/mm3 (4.2-5.4); Red Cell Distribution Width 15.9 % (11.5-14.5)
[2020-07-31 05:38] LABS: Alanine Aminotransferase 18 U/L (4-35); Albumin Level 3.2 g/dL (3.5-5.1); Alkaline Phosphatase 53 U/L (38-126); Anion Gap 4 mmol/L (8-16); Aspartate Amino Transferase 21 U/L (14-36); Bilirubin,Total 1.4 mg/dL (0.2-1.3); Blood Urea Nitrogen 19 mg/dL (7-17); Calcium 8.5 mg/dL (8.4-10.2); Carbon Dioxide 26 mmol/L (22-30); Chloride 106 mmol/L (98-107); Estimated CRCL calculation 44 ml/min; Estimated Glomerular Filt Rate 50; Glucose 124 mg/dL (65-105); Magnesium 1.9 mg/dL (1.6-2.3); Potassium 3.9 mmol/L (3.4-5.0); Sodium 136 mmol/L (137-145)
[2020-07-31] MEDS: LACTATED RINGERS 1,000 ML 125 ML IV CONT (07:24)
[2020-07-31] MEDS: PANTOPRAZOLE SODIUM IV 40 MG VIAL IV PUSH ×2 (08:23→17:20)
--- NOTE | 2020-07-31 10:01 | PC.NURSE ---
To GI Lab per stretcher, IV saline lock.
[2020-07-31 10:16] LABS: Glucose Point of Care 149 (65-105)
[2020-07-31] MEDS: LACTATED RINGERS 1,000 ML 150 ML IV CONT (10:22)
--- NOTE | 2020-07-31 10:37 | WPDANESEPPF ---
Anes - Initial Pre Proc Eval Procedure: Operation Date: 07/31/20 13:45 Proposed Procedures p Esophagogastroduodenoscopy & Colonoscopy - Arthur Gonzalez MD Date/Time: 07/31/20 10:37 Surgeon: Madeleine Candelaria MD Pre Op Diagnosis: severe anemia,ugi bleeding Patient Data Age: 64 Gender: F Height: 5 ft 1 in Weight: 87.7 kg Last Vital Signs Temp 96.8 F L 07/31/20 10:18 Pulse 87 07/31/20 10:18 Resp 18 07/31/20 10:18 BP 143/59 H 07/31/20 10:18 Pulse Ox 100 07/31/20 10:18 Allergies Allergy/AdvReac Type Severity Reaction Status Date / Time morphine Allergy Unknown Flushing Verified 07/31/20 10:14 Home Medications Medication Instructions Recorded Confirmed Type insulin degludec 100 unit/mL (3 10 unit SUB-Q DAILY #15 ml 06/21/19 07/30/20 Rx mL) subcutaneous pen pen needle, diabetic 32 gauge x #100 each 06/21/19 07/30/20 Rx 1/5 lancets 33 gauge #100 ea 03/31/20 07/30/20 Rx blood-glucose meter #1 ea 04/01/20 07/30/20 Rx blood sugar diagnostic See Rx Instructions .ROUTE 04/24/20 07/30/20 Rx .COMPLEX #100 ea lovastatin 10 mg tablet 10 mg PO DAILY #90 tablet 05/04/20 07/30/20 Rx sitagliptin 50 mg-metformin 1,000 1 tablet PO BID #180 tablet 05/04/20 07/30/20 Rx mg tablet glimepiride 2 mg tablet 2 mg PO QAM #180 tablet 06/25/20 07/30/20 Rx semaglutide 1 mg/dose (2 mg/1.5 1 mg SUBCUT WEEKLY #3 ml 07/06/20 07/30/20 Rx mL) subcutaneous pen injector ferrous fumarate-iron 1 cap PO BID #180 cap 07/10/20 07/30/20 Rx polysaccharide cplx 162 mg-115.2 mg (106 mg) cap lisinopril 10 mg PO DAILY 07/12/20 07/30/20 History meclizine 25 - 50 mg PO DAILY PRN 07/12/20 07/30/20 History omeprazole 40 mg PO BID #90 cap 07/14/20 07/30/20 Rx sucralfate 1 g PO Q4H PRN 07/30/20 07/30/20 History Laboratory Tests 07/30/20 07/30/20 07/30/20 10:17 10:17 10:17 WBC 9.0 K/mm3 K/mm3 (4.5-10.0) RBC 1.85 M/mm3 L M/mm3 (4.2-5.4) Hgb 4.5 g/dL L* g/dL (12.0-15.0) Hct 15.9 % L* % (37.0-47.0) MCV 85.9 fl fl (80-100) MCH 24.3 pg L pg (26-34) MCHC 28.3 g/dl L g/dl (32-36) RDW 15.7 % H % (11.5-14.5) Plt Count 262 k/mm3 D k/mm3 (150-375) MPV 11.6 fl H fl (7.4-10.4) Immature Gran % (Auto) 0.9 % H % (0-0.5) Neut % (Auto) 80.0 % H % (45.5-73.1) Lymph % (Auto) 11.1 % L % (18.3-44.2) [place] % (Auto) 6.0 % % (2.6-8.5) Eos % (Auto) 1.4 % % (0-4.4) Baso % (Auto) 0.6 % % (0.2-1.2) Lymph # (Auto) 1.00 K/mm3 K/mm3 (0.9-3.2) [place] # (Auto) 0.5 K/mm3 K/mm3 (0.1-0.6) Eos # (Auto) 0.1 K/mm3 K/mm3 (0-0.3) Baso # (Auto) 0.1 K/mm3 K/mm3 (0.0-0.1) Abs Immat Gran (auto) 0.08 K/mm3 H K/mm3 (0.00-0.031) Absolute Neuts (auto) 7.2 K/mm3 H K/mm3 (1.3-6.7) Absolute Nucleated RBC 0.0 K/mm3 K/mm3 (0.0-0.012) Nucleated RBC % 0.0 % % (0.0-0.2) Platelet Estimate Adequate (Adequate) Hypochromasia 2+ (NORMAL) Anisocytosis 2+ (NORMAL) Tear Drop Cells 1+ (NORMAL) Ovalocytes 1+ (NORMAL) PT 14.5 Seconds Seconds (11.1-14.7) INR 1.1 APTT 27.1 SECONDS SECONDS (22.3-36.8) Sodium 135 mmol/L L mmol/L (137-145) Potassium 4.5 mmol/L mmol/L (3.4-5.0) Chloride 102 mmol/L mmol/L (98-107) Carbon Dioxide 22 mmol/L mmol/L (22-30) Anion Gap 11 mmol/L mmol/L (8-16) BUN 29 mg/dL H D mg/dL (7-17) Creatinine 1.30 mg/dL H mg/dL (0.7-1.0) Estim Creat Clear Calc 38 ml/min ml/min Estimated GFR 41 L (59 - ) Glucose 338 mg/dL H mg/dL (65-105) POC Capillary Glucose Calcium 9.0 mg/dL mg/dL (8.4-10.2) Magnesium Total Bilirubin 0.9 mg/dL mg
[2020-07-31] MEDS: SIMETHICONE ORAL SUSPENSION 20 MG/0.3 ML 30 ML BOTTLE 0.6 ML PO (11:24)
[2020-07-31 11:51] LABS: Glucose Point of Care 167 (65-105)
[2020-07-31 12:40] LABS: Glucose Point of Care 157 (65-105)
--- NOTE | 2020-07-31 13:08 | PC.NURSE ---
This patient, Mary Uribe, was transferred to [ [id number]] on 07/31/20 at 1308. Personal belongings sent with patient. Report given to [FRANCISCO Mullins @ 1300 ]. Appropriate documentation sent with patient.
--- NOTE | 2020-07-31 15:08 | PM.IMPN ---
Progress Note: A&P Assessment and Plan (1) Profound anemia: Code(s): D64.9 - Anemia, unspecified Status: Acute Assessment and Plan: Presumably due to ongoing GI loss from duodenal ulcer recently noted on EGD. Transfuse to a stable hemoglobin. Dr. Gonzalez (Gastroenterology) consulted. He plans for repeat endoscopy and colonoscopy tomorrow. PATIENT IS NOW STATUS POST EGD CONTINUE CURRENT MANAGEMENT (2) Chronic kidney disease, stage 3: Code(s): N18.30 - Chronic kidney disease, stage 3 unspecified Status: Acute Assessment and Plan: Creatinine is stable on review of previous labs and will be monitored. (3) Type 2 diabetes mellitus with diabetic nephropathy: Qualifiers: Diabetes mellitus correction insulin use: without correction use Qualified Code(s): E11.21 - Type 2 diabetes mellitus with diabetic nephropathy Code(s): E11.21 - Type 2 diabetes mellitus with diabetic nephropathy Status: Acute Assessment and Plan: Recent hemoglobin A1c was 6.2%. Hold oral hypoglycemics for now. Continue basal insulin at a lower dose as she is only on clear liquids at this time. Initiate sliding scale insulin, Accu-Cheks, and hypoglycemic protocol. (4) Essential (primary) hypertension: Code(s): I10 - Essential (primary) hypertension Status: Acute Assessment and Plan: Blood pressures were reviewed and they are stable. I am going to hold her antihypertensives at this time and will monitor closely. (5) Duodenal ulcer: Code(s): K26.9 - Duodenal ulcer, unspecified as acute or chronic, without hemorrhage or perforation Status: Acute Assessment and Plan: Recent duodenal ulcer as detailed above. Continue PPI. GI consult. Subjective Date/time seen: 07/31/20 15:08 I FEEL FINE Review of Systems Review of Systems: All systems reviewed & are unremarkable except as noted in HPI and below Constitutional: Constitutional: Reports fatigue and Reports weakness Comments: FEELING WEAK Exam Narrative: Exam Narrative: General: Well-developed female sitting up in bed in no acute distress. Weight: 84.5 kilograms. BMI: 35.2. HEENT: Wearing glasses. PERRL, EOMI. Sclerae anicteric. Oral mucosa moist. Neck: Supple. Respiratory: Lungs are clear to auscultation bilaterally. Cardiovascular: Regular rate and rhythm with S1-S2. Gastrointestinal: Abdomen is soft, nontender, and nondistended with positive bowel sounds. Skin: Warm and dry. Generalized pallor. Extremities: No cyanosis or clubbing. Trace pretibial edema bilaterally. Radial and pedal pulses intact. Neurological: Alert. Cranial nerves 2-12 are grossly intact. No gross focal deficits to casual conversation. Psychiatric: Pleasant and cooperative with normal mood and affect. Judgment and insight intact. Objective Data Vital Signs Vital Signs: Vital Signs - 24 hr 07/30/20 15:15 07/30/20 15:55 07/30/20 16:00 Temperature 97.1 F L 97.1 F L Pulse Rate 87 87 89 Respiratory Rate 16 16 Blood Pressure 117/46 L 117/46 L Pulse Oximetry 100 100 07/30/20 16:10 07/30/20 16:16 07/30/20 16:25 Temperature 97.5 F L 97.5 F L 97.6 F Pulse Rate 87 87 88 Respiratory Rate 16 16 16 Blood Pressure 121/45 L 121/45 L 118/47 L Pulse Oximetry 100 100 100 07/30/20 17:25 07/30/20 18:00 07/30/20 18:25 Temperature 97.4 F L 97.1 F L Pulse Rate 86 87 92 Respiratory Rate 14 16 Blood Pressure 113/48 L 135/52 L Pulse Oximetry 100 99 07/30/20 18:49 07/30/20 20:00 07/30/20 20:37 Temperature 97.1 F L 97.7 F 97 F L Pulse Rate 88 88 87 Respiratory Rate 18 20 16 Blood Pressure 125/45 L 133/45 L 130/50 L Pulse Oximetry 100 100 100 07/30/20 20:56 07/30/20 21:56 07/30/20 22:00 Temperature 96.7 F L 97.6 F Pulse Rate 86 87 91 Respiratory Rate 16 16 Blood Pressure 127/51 L 124/50 L Pulse Oximetry 100 100 07/30/20 22:56 07/31/20 00:00 07/31/20 02:00 Temperature 9
[2020-07-31 17:41] LABS: Glucose Point of Care 178 (65-105)
--- NOTE | 2020-07-31 19:44 | PHAR ---
HOME MEDICATION VERIFIED BY PHARMACY: TRESIBA FLEXTOUCH INSULIN DEGLUDEC PEN
[2020-08-01 06:00] VITALS: BP 108/52; PULSE 71; RESP 20; TEMP 36.8; O2SAT 98
[2020-08-01 07:46] LABS: Hematocrit 23.5 % (37.0-47.0); Hemoglobin 7.3 g/dL (12.0-15.0); Mean Corpuscular HGB Conc 31.1 g/dl (32-36); Mean Corpuscular Hemoglobin 26.6 pg (26-34); Mean Corpuscular Volume 85.8 fl (80-100); Platelet Count Result 157 k/mm3 (150-375); Red Blood Count 2.74 M/mm3 (4.2-5.4); Red Cell Distribution Width 16.1 % (11.5-14.5); White Blood Count 6.1 K/mm3 (4.5-10.0)
[2020-08-01] MEDS: PANTOPRAZOLE SODIUM IV 40 MG VIAL IV PUSH (08:24)
--- NOTE | 2020-08-01 09:42 | WPDANESPN ---
Anes - Prog Note Post-Op Date/Time: 08/01/20 09:42 Cardiovascular status: normal Respiratory status: normal Airway patency: baseline Mental status: baseline Post-Op hydration status: normal Vital Signs: Last Vital Signs Temp 36.8 C 08/01/20 06:00 Pulse 71 08/01/20 06:00 Resp 20 08/01/20 06:00 BP 108/52 L 08/01/20 06:00 Pulse Ox 98 08/01/20 06:00 Pain Score (VAS): 0/10. Patient resting in bed at time of assessment, appears comfortable. I/O: Intake & Output 07/31/20 08/01/20 08/01/20 23:59 07:59 15:59 Intake Total 910 650 Output Total 1200 Balance 910 -550 Laboratory Tests 08/01/20 07:38 07/31/20 04:37 07/31/20 07/31/20 07/31/20 10:10 11:49 12:21 WBC RBC Hgb Hct MCV MCH MCHC RDW Plt Count MPV POC Capillary Glucose 149 H 167 H 157 H 07/31/20 08/01/20 16:44 07:38 WBC 6.1 RBC 2.74 L Hgb 7.3 L Hct 23.5 L MCV 85.8 MCH 26.6 MCHC 31.1 L RDW 16.1 H Plt Count 157 MPV 11.0 H POC Capillary Glucose 178 H Post-procedural complaints: none Patient Feedback: Patient satisfied with anesthetic care.
[2020-08-01 10:29] LABS: Glucose Point of Care 202 (65-105)
[2020-08-01 10:33] VITALS: O2SAT 98
--- NOTE | 2020-08-01 13:00 | PM.DS ---
DS: Admitting Diagnosis Admitting Diagnosis Admitting Diagnosis: (1) Profound anemia: Code(s): D64.9 - Anemia, unspecified Status: Acute Assessment and Plan: Presumably due to ongoing GI loss from duodenal ulcer recently noted on EGD. Transfuse to a stable hemoglobin. Dr. Gonzalez (Gastroenterology) consulted. He plans for repeat endoscopy and colonoscopy tomorrow. (2) Chronic kidney disease, stage 3: Code(s): N18.30 - Chronic kidney disease, stage 3 unspecified Status: Acute Assessment and Plan: Creatinine is stable on review of previous labs and will be monitored. (3) Type 2 diabetes mellitus with diabetic nephropathy: Qualifiers: Diabetes mellitus terminal worker insulin use: without terminal worker use Qualified Code(s): E11.21 - Type 2 diabetes mellitus with diabetic nephropathy Code(s): E11.21 - Type 2 diabetes mellitus with diabetic nephropathy Status: Acute Assessment and Plan: Recent hemoglobin A1c was 6.2%. Hold oral hypoglycemics for now. Continue basal insulin at a lower dose as she is only on clear liquids at this time. Initiate sliding scale insulin, Accu-Cheks, and hypoglycemic protocol. (4) Essential (primary) hypertension: Code(s): I10 - Essential (primary) hypertension Status: Acute Assessment and Plan: Blood pressures were reviewed and they are stable. I am going to hold her antihypertensives at this time and will monitor closely. (5) Duodenal ulcer: Code(s): K26.9 - Duodenal ulcer, unspecified as acute or chronic, without hemorrhage or perforation Status: Acute Assessment and Plan: Recent duodenal ulcer as detailed above. Continue PPI. GI consult. DS: Discharge Diagnosis Discharge Diagnosis (1) Profound anemia: Code(s): D64.9 - Anemia, unspecified Status: Acute Assessment and Plan: Presumably due to ongoing GI loss from duodenal ulcer recently noted on EGD. Transfuse to a stable hemoglobin. Dr. Gonzalez (Gastroenterology) consulted. He plans for repeat endoscopy and colonoscopy tomorrow. PATIENT IS NOW STATUS POST EGD CONTINUE CURRENT MANAGEMENT will follow-up in the outpatient setting with PCP repeat CBC within 1 week consider Hematology-Oncology referral in the outpatient setting if hemoglobin remains low. (2) Chronic kidney disease, stage 3: Code(s): N18.30 - Chronic kidney disease, stage 3 unspecified Status: Acute Assessment and Plan: Creatinine is stable on review of previous labs and will be monitored. (3) Type 2 diabetes mellitus with diabetic nephropathy: Qualifiers: Diabetes mellitus fdc insulin use: without terminal worker use Qualified Code(s): E11.21 - Type 2 diabetes mellitus with diabetic nephropathy Code(s): E11.21 - Type 2 diabetes mellitus with diabetic nephropathy Status: Acute Assessment and Plan: Recent hemoglobin A1c was 6.2%. Hold oral hypoglycemics for now. Continue basal insulin at a lower dose as she is only on clear liquids at this time. Initiate sliding scale insulin, Accu-Cheks, and hypoglycemic protocol. (4) Essential (primary) hypertension: Code(s): I10 - Essential (primary) hypertension Status: Acute Assessment and Plan: Blood pressures were reviewed and they are stable. I am going to hold her antihypertensives at this time and will monitor closely. (5) Duodenal ulcer: Code(s): K26.9 - Duodenal ulcer, unspecified as acute or chronic, without hemorrhage or perforation Status: Acute Assessment and Plan: Recent duodenal ulcer as detailed above. Continue PPI. GI consult. DS: Summary Hospital Course Reason for hospitalization: fatigue Hospital Course: this is a 64-year-old female with past medical history significant for type 2 diabetes mellitus hypertension patient presented to the emergency room due to fatigue she was found to have profound ane
== END 2020-08-01 14:00 | disposition home or self-care (01) | DRG 378 ==
LOC: ANHED 11:35 → ANHIMU 11:58 → ANH3MEDSUR 07-31 15:25 → ANHIMU 08-04 17:33
PROVIDERS: Internal Medicine Gastroenterology; Physician Assistant; Admitting Provider Family Medicine; Emergency Provider General Practice; PCP Family Medicine; Visit Provider Internal Medicine
PROC: 0DJ08ZZ Inspection of Upper Intestinal Tract, Via Natural or Artificial Opening Endoscopic (ICD-10-PCS; CPT 43235; principal; 2020-07-31 13:45)
DX: K26.4 Chronic or unspecified duodenal ulcer with hemorrhage (principal); D62 Acute posthemorrhagic anemia; K29.70 Gastritis, unspecified, without bleeding; K63.5 Polyp of colon; K21.9 Gastro-esophageal reflux disease without esophagitis; E11.22 Type 2 diabetes mellitus with diabetic chronic kidney disease; I12.9 Hypertensive chronic kidney disease with stage 1 through stage 4 chronic kidney disease, or unspecified chronic kidney disease; N18.30 Chronic kidney disease, stage 3 unspecified; E78.2 Mixed hyperlipidemia; J45.20 Mild intermittent asthma, uncomplicated; Z79.4 Long term (current) use of insulin; Z79.899 Other long term (current) drug therapy
CPT/HCPCS: 36415; 36430; 71045; 80053; 82948; 83735; 84443; 85014; 85018; 85025; 85027; 85610; 85730; 86850; 86900; 86901; 86923; 88305; 93005; 96361; 96374; 99285; A9270; C9113; G0378; J2704; J7050; J7120; P9016

== ENCOUNTER 2021-03-29 14:48 | Outpatient (CLI) | payer MEDICARE, SELFPAY ==
--- NOTE | ~2021-03-29 | MM_ITS ---
EXAMINATION: MM screening annabel BI w sara HISTORY: Screening TECHNIQUE: Craniocaudal and mediolateral oblique 3-D tomosynthesis images were obtained and synthetic 2-D images were generated. CAD analysis was submitted and interpreted. COMPARISON: No prior mammogram is available for comparison at this institution. BREAST PARENCHYMAL COMPOSITION: There are scattered areas of fibroglandular density. FINDINGS: There is no evidence of suspicious mass, calcification, or architectural distortion to sugg est malignancy in either breast. There has been no suspicious interval change. IMPRESSION: 1. No mammographic evidence of malignancy. 2. Recommend routine screening mammography in one year. BI-RADS Category 1: Negative Reviewed, dictated and finalized at location A. [place] [employer]
== END 2021-03-29 14:49 | disposition home or self-care (01) ==
LOC: ANHIMG 14:49
PROVIDERS: PCP Family Medicine; Visit Provider Physician Assistant Medical
DX: Z12.31 Encounter for screening mammogram for malignant neoplasm of breast (principal)
CPT/HCPCS: 77063; 77067

== ENCOUNTER 2021-06-26 13:37 | Emergency (ER) | payer MEDICARE, SELFPAY ==
[2021-06-26 13:42] VITALS: BP 145/78; PULSE 77; RESP 16; TEMP 36.5; O2SAT 100
--- NOTE | 2021-06-26 14:09 | ED.SKABFB ---
HPI - Skin/Abscess/Foreign Bdy General Chief complaint: Skin/Abscess/Foreign Body Stated complaint: RASH ON FACE Time Seen by Provider: 06/26/21 14:05 Source: patient, RN notes reviewed and old records reviewed Mode of arrival: ambulatory Limitations: no limitations History of Present Illness HPI narrative: 65-year-old female who presents to [facility] with complaints of rash to bilateral forearms back of neck under her chin and to her right chin area for the past 2 to 3 days which is itchy. Patient states she was in the yard either Monday or Monday past working and may have been exposed to poisonous plants. Patient denies any difficulty with her breathing or any difficulty with swallowing, patient does have a history of asthma and does use albuterol inhaler as needed. Patient states that she has been using Calamine lotion and cortisone ointment to rash with no improvement. MD complaint: rash Onset (ago): day(s) (2-3) Tetanus up to date: yes Location: face, neck (and left under left chin), LUE and RUE Severity: moderate Quality: pruritic Context: other (working in yard) Treatments prior to arrival: OTC topical medication Related Data Home Medications Medication Instructions Recorded Confirmed lisinopril 10 mg PO DAILY 07/12/20 06/26/21 fluticasone 250 mcg-salmeterol 50 1 inh INHALATION BID 10/09/20 06/26/21 mcg/dose blistr powdr for inhalation Allergies Allergy/AdvReac Type Severity Reaction Status Date / Time morphine Allergy Unknown Flushing Verified 06/26/21 13:41 Review of Systems Review of Systems: CONSTITUTIONAL: Denies fever, chills, or sweats. EYES: Denies visual changes, redness, or discharge. ENT: Denies rhinorrhea, congestion, sore throat, or otalgia. CARDIOVASCULAR: Denies chest pain, palpitations, or edema. RESPIRATORY: Denies cough or dyspnea. GASTROINTESTINAL: Denies abdominal pain, nausea, vomiting, or diarrhea. GENITOURINARY: Denies dysuria or hematuria. SKIN: Positive for rash and itching with fine red raised rash noted to bilateral forearms right side of face, back of neck and under left chin MUSCULOSKELETAL: Denies back pain, joint pain, or myalgia. NEUROLOGIC: Denies headache, numbness, or weakness. PSYCHIATRIC: Denies anxiety or depression. All systems reviewed & are unremarkable except as noted in HPI and below PMFSH Past Medical History Medical History Benign neoplasm of unspecified adrenal gland Left. Chronic kidney disease, stage 3 Baseline creatinine is between 1.2 and 1.40. Essential (primary) hypertension Fatty (change of) liver, not elsewhere classified History of kidney stones Mild intermittent asthma, uncomplicated Mixed hyperlipidemia Shingles (~2014) Type 2 diabetes mellitus with diabetic nephropathy Hemoglobin A1c was 6.3% on 07/12/2020. Surgical History Surgical History History of cholecystectomy History of incisional hernia repair History of partial hysterectomy History of subtotal thyroidectomy Benign nodules. History of tonsillectomy History of tubal ligation Family History Family History Father Family history of cardiovascular disease Family history of elevated blood lipids Diabetes mellitus Hypertension Family history of Alzheimer's disease Mother Family history of seizure disorder Family history of development disorder Family history of hypercholesterolemia Hypertension Family history of Alzheimer's disease Aortic aneurysm, thoracic Family history of malignant neoplasm of brain Social History Social History Social History: Surrogate decision maker: Evan Rony, . Code status: Full code. Second hand tobacco smoke exposure: Yes Alcohol intake: never Substance use: never Additional living arra
== END 2021-06-26 14:40 | disposition home or self-care (01) ==
PROVIDERS: Emergency Provider Registered Nurse; PCP Family Medicine
DX: L23.7 Allergic contact dermatitis due to plants, except food (principal); I12.9 Hypertensive chronic kidney disease with stage 1 through stage 4 chronic kidney disease, or unspecified chronic kidney disease; E11.22 Type 2 diabetes mellitus with diabetic chronic kidney disease; N18.30 Chronic kidney disease, stage 3 unspecified; Z79.84 Long term (current) use of oral hypoglycemic drugs; K76.0 Fatty (change of) liver, not elsewhere classified; E78.2 Mixed hyperlipidemia; E11.21 Type 2 diabetes mellitus with diabetic nephropathy
CPT/HCPCS: 99213; G0463

== ENCOUNTER 2021-11-19 09:27 | Outpatient (CLI) | payer MEDICARE, SELFPAY ==
--- NOTE | 2021-11-19 10:01 | ECG_ITS ---
Measurements Intervals [place] Rate: 68 P: 14 MS: 170 QRS: 8 QRSD: 104 T: -2 QT: 394 QTc: 420 Interpretive Statements SINUS RHYTHM WITHIN NORMAL LIMITS COMPARED TO ECG 07/30/2020 11:17:16 THIS ELECTROCARDIOGRAM IS OF BETTER QUALITY Electronically Signed On 11-19-2021 12:04:35 CDT by Rupert Gardiner M.D.
[2021-11-19 10:15] LABS: Anion Gap 11 mmol/L (8-16); Blood Urea Nitrogen 17 mg/dL (7-17); Calcium 9.9 mg/dL (8.4-10.2); Carbon Dioxide 26 mmol/L (22-30); Chloride 102 mmol/L (98-107); Estimated Glomerular Filt Rate 45; Glucose 207 mg/dL (65-110); Potassium 4.5 mmol/L (3.4-5.0); Sodium 139 mmol/L (137-145)
== END 2021-11-19 09:28 | disposition home or self-care (01) ==
PROVIDERS: PCP Family Medicine; Visit Provider Dentist
DX: I10 Essential (primary) hypertension (principal); E11.9 Type 2 diabetes mellitus without complications
CPT/HCPCS: 36415; 80048; 93005

== ENCOUNTER 2022-04-29 08:22 | Emergency (ER) | payer MEDICARE, SELFPAY ==
[2022-04-29 08:31] VITALS: BP 138/82; PULSE 82; RESP 16; TEMP 36.3; O2SAT 100
--- NOTE | 2022-04-29 08:47 | ED.UPPEXIN ---
HPI - Extremity Injury (Upper) General Chief Complaint: Extremity Injury, Upper Stated Complaint: lt shoulder injury Time Seen by Provider: 04/29/22 08:30 Source: patient Mode of arrival: ambulatory Limitations: no limitations History of Present Illness HPI narrative: Patient presents today complaining of left shoulder pain. Reports pain started after she was moving heavy boxes and complaining of 2 days ago. Denies radiation of the pain, but does report intermittent tingling in her fingers. She currently rates her pain 9/10 with movement of the arm. She has been taking Tylenol and using Biofreeze without relief. Related Data Allergies Allergy/AdvReac Type Severity Reaction Status Date / Time poison farhat extract Allergy Mild Rash Verified 04/29/22 08:30 morphine Allergy Unknown Flushing Verified 04/29/22 08:30 Review of Systems Review of Systems: CONSTITUTIONAL: Denies body aches, fever, chills, or sweats. EYES: Denies visual changes, redness, or discharge. ENT: Denies rhinorrhea, congestion, sore throat, or otalgia. CARDIOVASCULAR: Denies chest pain, palpitations, or edema. RESPIRATORY: Denies cough or dyspnea. GASTROINTESTINAL: Denies abdominal pain, nausea, vomiting, or diarrhea. GENITOURINARY: Denies dysuria or hematuria. SKIN: Denies rash, itching, or wounds. MUSCULOSKELETAL: Denies back pain, or myalgia.+ left shoulder pain NEUROLOGIC: Denies headache, numbness, or weakness.+ tingling in fingers PSYCH: Denies depression or anxiety. PMFSH Past Medical History Medical History Benign neoplasm of unspecified adrenal gland Left. Chronic kidney disease, stage 3 Baseline creatinine is between 1.2 and 1.40. Essential (primary) hypertension Fatty (change of) liver, not elsewhere classified History of kidney stones Mild intermittent asthma, uncomplicated Mixed hyperlipidemia Shingles (~2014) Type 2 diabetes mellitus with diabetic nephropathy Hemoglobin A1c was 6.3% on 07/12/2020. Surgical History Surgical History History of cholecystectomy History of incisional hernia repair History of partial hysterectomy History of subtotal thyroidectomy Benign nodules. History of tonsillectomy History of tubal ligation Family History Family History Father Family history of cardiovascular disease Family history of elevated blood lipids Diabetes mellitus Hypertension Family history of Alzheimer's disease Mother Family history of seizure disorder Family history of development disorder Family history of hypercholesterolemia Hypertension Family history of Alzheimer's disease Aortic aneurysm, thoracic Family history of malignant neoplasm of brain Social History Social History Social History: Surrogate decision maker: Evan Rony, . Code status: Full code. Smoking status: Never smoker Second hand tobacco smoke exposure: Yes Alcohol intake: never Substance use: never Additional living arrangements comments: Resides in [place] with her . 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 Gender identity (if verbalized by the patient): Female Sexual Orientation (if Verbalized by the Patient): Straight or Heterosexual Spiritual care concerns: No Comments At time of signature, I have reviewed and agree with nursing past medical, surgical, social and family history unless otherwise noted. Please see nursing chart for further information. There is no relevant family history pertinent to the presenting complaint Exam Narrative: GENERAL: Well-appearing, well-nourished, and in no acute distress. HEAD: Normocephalic, atraumatic. EYES: EOMI. No redness or drainage. Conjunctivae normal. ENT: Mucous membranes pink and moist. NECK: Normal AROM. CHEST:
== END 2022-04-29 09:00 | disposition home or self-care (01) ==
PROVIDERS: Emergency Provider Nurse Practitioner; PCP Family Medicine
DX: S46.912A Strain of unspecified muscle, fascia and tendon at shoulder and upper arm level, left arm, initial encounter (principal); X50.0XXA Overexertion from strenuous movement or load, initial encounter; I12.9 Hypertensive chronic kidney disease with stage 1 through stage 4 chronic kidney disease, or unspecified chronic kidney disease; E11.22 Type 2 diabetes mellitus with diabetic chronic kidney disease; N18.30 Chronic kidney disease, stage 3 unspecified; E11.42 Type 2 diabetes mellitus with diabetic polyneuropathy; E78.2 Mixed hyperlipidemia; J45.909 Unspecified asthma, uncomplicated; K76.0 Fatty (change of) liver, not elsewhere classified; Z85.858 Personal history of malignant neoplasm of other endocrine glands; Z79.84 Long term (current) use of oral hypoglycemic drugs; Z79.4 Long term (current) use of insulin
CPT/HCPCS: 99213; G0463

== ENCOUNTER 2023-12-12 12:29 | Outpatient (CLI) | payer MEDICARE, SELFPAY ==
--- NOTE | ~2023-12-12 | MM_ITS ---
EXAMINATION: MM screening annabel BI w sara HISTORY: Screening mammogram TECHNIQUE: Craniocaudal and mediolateral oblique 3-D tomosynthesis images were obtained and synthetic 2-D images were generated. CAD analysis was submitted and interpreted. COMPARISON: 03/29/2021, 11/02/2018 BREAST PARENCHYMAL COMPOSITION:Not Dense. The breasts are almost entirely fatty FINDINGS: No suspicious mass, calcification, or architectural distortion are identified in either kristin ast to suggest malignancy. There has been no suspicious interval change. IMPRESSION: No mammographic evidence of malignancy. Recommend routine screening mammography in one year. BI-RADS Category 1: Negative Reviewed, dictated and finalized at location .
== END 2023-12-12 12:30 | disposition home or self-care (01) ==
PROVIDERS: PCP Family Medicine; Visit Provider Nurse Practitioner Family
DX: Z12.31 Encounter for screening mammogram for malignant neoplasm of breast (principal); Z78.0 Asymptomatic menopausal state
CPT/HCPCS: 77063; 77067

== ENCOUNTER 2025-03-24 18:12 | Emergency (ER) | payer MEDICARE, SELFPAY ==
--- NOTE | ~2025-03-24 | XR_ITS ---
[[id number] ] INDICATION: Left rib pain after fall TECHNIQUE: Frontal projection of the upper left ribs, frontal projection of the lower left ribs, oblique projection of all the left ribs, frontal inspiratory chest x-ray for interpretation. FINDINGS: There are no displaced rib fractures identified. There are no soft tissue abnormality seen. The lungs are clear. IMPRESSION: 1:No acute displaced rib fractures. Reviewed, dictated and finalized at location [facility]. [employer]
[2025-03-24 18:21] VITALS: BP 124/80; PULSE 86; RESP 16; TEMP 36.1; O2SAT 100
--- NOTE | 2025-03-24 18:45 | ED.FALL ---
HPI - Fall General Chief Complaint: Fall Stated Complaint: L Side Pain Time Seen by Provider: 03/24/25 18:57 Mode of arrival: ambulatory Limitations: no limitations History of Present Illness HPI Narrative: 69-year-old female presents with concern for left rib pain. Reports today she was walking on the sidewalk and she fell. Reports she skinned her knee but is not having knee pain. She reports pain with deep breathing and coughing and certain movements. She has taken Tylenol. Denies any bruising or trouble breathing. MD complaint: fall Related Data Home Medications ?Medication ?Instructions ?Recorded ?Confirmed ?Last Taken ?Type fluoride (sodium) 1.1 % dental dental 06/16/23 03/21/25 Unknown History paste (PreviDent 5000 Booster Plus) Allergies Allergy/AdvReac Type Severity Reaction Status Date / Time poison farhat extract Allergy Mild Rash Verified 03/24/25 19:06 morphine Allergy Unknown Flushing Verified 03/24/25 19:06 Review of Systems Review of Systems: CONSTITUTIONAL: Denies malaise, chills, sweats, or fever. CARDIOVASCULAR: Denies chest pain RESPIRATORY: Denies cough or dyspnea. Reports rib pain with deep GASTROINTESTINAL: Denies abdominal pain, nausea, vomiting SKIN: Denies bruising or open skin MUSCULOSKELETAL: Reports left rib pain All systems reviewed & are unremarkable except as noted in HPI and below PMFSH Past Medical History Medical History Diabetic retinopathy associated with controlled type 2 diabetes mellitus History of kidney stones Shingles (~2014) Chronic kidney disease, stage 3 Baseline creatinine is between 1.2 and 1.40. 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 Essential (primary) hypertension Fatty (change of) liver, not elsewhere classified Mixed hyperlipidemia Mild intermittent asthma, uncomplicated Type 2 diabetes mellitus with diabetic nephropathy Hemoglobin A1c was 6.3% on 07/12/2020. Surgical History Surgical History History of incisional hernia repair History of tonsillectomy History of tubal ligation History of partial hysterectomy History of cholecystectomy History of subtotal thyroidectomy Benign nodules. Family History Family History Father Family history of cardiovascular disease Family history of elevated blood lipids Diabetes mellitus Hypertension Family history of Alzheimer's disease Mother Family history of seizure disorder Family history of development disorder Family history of hypercholesterolemia Hypertension Family history of Alzheimer's disease Aortic aneurysm, thoracic Family history of malignant neoplasm of brain Social History Social History Social History: Surrogate decision maker: Evan Uribe, . Code status: Full code. Smoking status: Never smoker Second hand tobacco smoke exposure: Yes Alcohol intake: never Substance use: never Lack of Transportation: No Lack of Food: Never True Current Housing: I Have Housing Concerned About Future Housing: No Difficulty Paying Gas/Electric Bills: No Difficulty Paying for Meds: No Education: Decline to Answer Difficulty w/ Childcare or Family Care: No Additional living arrangements comments: Resides in [place] with her . Additional occupation/education comments: Retired from [employer]. Gender identity (if verbalized by the patient): Female Sexual Orientation (if Verbalized by the Patient): Straight or Heterosexual Spiritual care concerns: No Comments At time of signature, agree with nursing past medical, surgical, social and family history. There is no relevant family history pertinent to the presenting complaint Exam Narrative: GENERAL: Well-appearing, well-nourished, and in no acute distress. HEAD: Normocephalic, atraumatic. EYES: PERRLA, sclera clear, and EOMI. No nystagmus. ENT: Nares clear. Mucous membranes moist. NECK: Supple. CHEST: No respiratory distress. Clear to auscultation. No bony deformities, no asymmetry. Speaks in full sentences. Left rib tenderness HEART: Regular rate and rhythm. ABDOMEN: Soft, nontender, nondistended, normal active bowel sounds, no palpable masses. SKIN: Warm, dry, no visible rash. No bruising, redness, warmth, open skin NEURO: Alert and oriented x3. PSYCH: Normal mood and affect Course Course Emergency Course: Patient is aware of diagnosis, understands and agrees to treatment plan. Anticipatory guidance given. Patient agrees to follow-up as directed and is aware of reasons to seek care at the emergency department. Portions of this record may have been created with voice recognition software Level of Care: Express Care Visit Vital Signs Vital signs: Vital Signs Temperature 97 F L 03/24/25 18:21 Pulse Rate 86 03/24/25 18:21 Respiratory Rate 16 03/24/25 18:21 Blood Pressure 124/80 03/24/25 18:21 Pulse Oximetry 100 03/24/25 18:21 Temperature 97 F L 03/24/25 18:21 Pulse Rate 86 03/24/25 18:21 Respiratory Rate 16 03/24/25 18:21 Blood Pressure 124/80 03/24/25 18:21 Pulse Oximetry 100 03/24/25 18:21 MDM Differential Diagnosis Differential Diagnosis: I evaluated this patient in the [facility]. History is obtained from patient who is an independent historian and physical exam was performed.? Available medical records were reviewed. ? Exam findings and relevant testing show no acute concerns or changes; patient is non-toxic appearing and is in no distress. ? Differential diagnosis and treatment plan were discussed with the patient. Patient agrees with discussion and after shared medical decision making agrees with plan of care. All questions were answered to the patient's satisfaction. Patient is appropriate for outpatient treatment and follow-up. Imaging Data My impression: Images reviewed, interpreted by radiologist, agree, see report. Radiologist's impression: [[id number] ] INDICATION: Left rib pain after fall TECHNIQUE: Frontal projection of the upper left ribs, frontal projection of the lower left ribs, oblique projection of all the left ribs, frontal inspiratory chest x-ray for interpretation. FINDINGS: There are no displaced rib fractures identified. There are no soft tissue abnormality seen. The lungs are clear. IMPRESSION: 1:No acute displaced rib fractures. Discharge Plan Discharge Clinical Impression: Rib contusion Patient Disposition: Home Condition: Stable Instructions: Rib Contusion (ED) Additional Instructions: Take Tylenol, 650 to 1000 mg 4 times daily for pain. Breathing exercises will not be effective unless your pain is controlled. Strenuous activities should be avoided until the pain resolves. If the pain is increasing you may be doing too much. Cough and deep breath at least 10 times per hour. Try holding a cushion firmly against the painful site when you deep breath and cough to decrease the pain. Sit out of bed and keep moving as much as you feel comfortable. This will decrease the risk of developing lung complications. Please follow-up with your primary care doctor as needed. If you have any urgent concerns or trouble breathing you should go to the emergency room Patient Language: Z[place]ian Prescriptions: New cyclobenzaprine 10 mg tablet 10 mg PO TID PRN (Reason: muscle spasm) Qty: 20 0RF No Action fluoride (sodium) [PreviDent 5000 Booster Plus] 1.1 % paste dental (DME) lancets 33 gauge misc See Rx Instructions .ROUTE .MEDSUPPLY Qty: 100 0RF Rx Instructions: As directed (DME) blood-glucose meter [OneTouch Verio Meter] [facility] [place] See Rx Instructions .ROUTE .MEDSUPPLY Qty: 1 0RF Rx Instructions: As directed albuterol sulfate [ProAir HFA] 90 mcg/actuation HFA aerosol inhaler 2 puff inhalation Q4H PRN (Reason: shortness of breath or wheezing) Qty: 8.5 1RF alprazolam 0.25 mg tablet 0.25 mg PO TID PRN (Reason: anxiety) Qty: 10 0RF OneTouch Verio test strips Strip See Rx Instructions .ROUTE .COMPLEX Qty: 100 0RF Dose Instruction: USE TO TEST BLOOD SUGAR ONCE DAILY Rx Instructions: USE TO TEST BLOOD SUGAR ONCE DAILY (DME) blood-glucose meter [Accu-Chek Guide Glucose Meter] [facility] [place] See Rx Instructions .Route Qty: 1 0RF Rx Instructions: As directed (DME) Accu-Chek SmartView Test Strip Strip See Rx Instructions .Route Qty: 200 3RF Rx Instructions: As directed BID and prn (DME) lancets [Accu-Chek Softclix Lancets] Misc See Rx Instructions .Route Qty: 200 3RF Rx Instructions: As directed BID and prn lisinopril 10 mg tablet See Rx Instructions .ROUTE .COMPLEX Qty: 90 1RF Dose Instruction: Take 1 tablet by mouth once daily Rx Instructions: Take 1 tablet by mouth once daily glimepiride 2 mg tablet See Rx Instructions .ROUTE .COMPLEX Qty: 90 1RF Dose Instruction: TAKE 1 TABLET BY MOUTH ONCE DAILY IN THE MORNING Rx Instructions: TAKE 1 TABLET BY MOUTH ONCE DAILY IN THE MORNING (DME) pen needle, diabetic [Comfort EZ Pen [place]] 32 gauge x 5/32 needle See Rx Instructions .Route Qty: 100 3RF Rx Instructions: Use with Tresiba omeprazole 40 mg capsule,delayed release(DR/EC) See Rx Instructions .ROUTE .COMPLEX Qty: 180 1RF Dose Instruction: Take 1 capsule by mouth twice daily Rx Instructions: Take 1 capsule by mouth twice daily lovastatin 10 mg tablet See Rx Instructions .ROUTE .COMPLEX Qty: 90 1RF Dose Instruction: Take 1 tablet by mouth once daily Rx Instructions: Take 1 tablet by mouth once daily insulin degludec [Tresiba FlexTouch U-100] 100 unit/mL (3 mL) insulin pen 10 unit subcut DAILY Qty: 15 1RF fluticasone propionate [Flonase Allergy Relief] 50 mcg/actuation spray,suspension 2 spray intranasal DAILY Qty: 16 5RF Rx Instructions: administer into each nostril montelukast 10 mg tablet See Rx Instructions .ROUTE .COMPLEX Qty: 90 1RF Dose Instruction: TAKE 1 TABLET BY MOUTH ONCE DAILY AT BEDTIME Rx Instructions: TAKE 1 TABLET BY MOUTH ONCE DAILY AT BEDTIME fluticasone propion-salmeterol [Wixela Inhub] 250-50 mcg/dose blister with device 1 inh inhalation BID Qty: 60 5RF Ozempic 2 mg/dose (8 mg/3 mL) pen injector See Rx Instructions .ROUTE .COMPLEX Qty: 3 2RF Dose Instruction: INJECT 2 MG SUBCUTANEOUSLY ONCE A WEEK Rx Instructions: INJECT 2 MG SUBCUTANEOUSLY ONCE A WEEK metformin 750 mg tablet extended release 24 hr 750 mg PO BID Qty: 180 1RF Rx Instructions: take with meals Follow-up/Referrals: Rupert Henderson MD [Primary Care Provider, Family Practice] Time of Disposition: 19:09
== END 2025-03-24 19:15 | disposition home or self-care (01) ==
PROVIDERS: Emergency Provider Nurse Practitioner; PCP Family Medicine
DX: S20.212A Contusion of left front wall of thorax, initial encounter (principal); W19.XXXA Unspecified fall, initial encounter; I12.9 Hypertensive chronic kidney disease with stage 1 through stage 4 chronic kidney disease, or unspecified chronic kidney disease; E11.22 Type 2 diabetes mellitus with diabetic chronic kidney disease; N18.30 Chronic kidney disease, stage 3 unspecified; Z79.4 Long term (current) use of insulin; Z79.84 Long term (current) use of oral hypoglycemic drugs; Z79.85 Long-term (current) use of injectable non-insulin antidiabetic drugs; E11.319 Type 2 diabetes mellitus with unspecified diabetic retinopathy without macular edema; E78.2 Mixed hyperlipidemia; J45.909 Unspecified asthma, uncomplicated; K76.0 Fatty (change of) liver, not elsewhere classified
CPT/HCPCS: 71101; 99213; G0463